=== PATIENT | female | born 1980 | race Caucasian/White ===

== ENCOUNTER 2016-05-06 21:58 | Emergency (ER) | payer OTHER ==
[~2016-05-06] VITALS: Ht 160 cm; Wt 172.5 kg
[~2016-05-06 21:58] MED LIST: CHOLCAP5 PO; FURO-85 PO; INSU1SOL SC; INSUINJ17 SC; LSN25 PO; MULT1CAP3 PO; NAPR-1169 PO; NORE5TAB5 PO; OMEP40CA PO; RANI300T2 PO
[2016-05-06 22:01] VITALS: TEMP 36.8; Ht 160 cm; Wt 172.5 kg
[2016-05-06] MEDS ORDERED: INSUINJ2 SC ×2 (22:25)
--- NOTE | 2016-05-06 22:30 | DIAGNOSTIC IMAGING REPORT ---
CHEST ONE VIEW PORTABLE CLINICAL HISTORY: Atypical chest pain COMPARISON STUDY: 09/30/2015 FINDINGS: The cardiac and mediastinal contours are normal. There is no evidence of focal pulmonary consolidation. There is no evidence of failure. No pleural effusions are visualized.[ The study is limited from a technical standpoint due to the patient's large body habitus. IMPRESSION: No active disease in the chest. Electronically signed by: Robert Brown M.D. 05/06/2016 10:28 PM Dictated Date/Time: 05/06/2016 10:28 PM
[2016-05-06 22:33] LABS: BASO % 0.1 %; BASO ABS # 0.01 K/uL (0-0.2); COMPLETE YES; EOS % 1.2 %; HEMATOCRIT 37.8 % (37-47); IG% 0.2 %; LYMPH % 23.2 %; LYMPH ABS # 2.35 K/uL (1.2-3.4); MEAN CELL VOLUME 88.3 fL (80-100); MEAN CORPUSCULAR HEMOGLOBIN 29.9 pg (25-34); MEAN CORPUSCULAR HGB CONC 33.9 g/dl (32-36); MEAN PLATELET VOLUME 11.7 fL (7.4-10.4); NEUT % 69.3 %; PLATELET COUNT 169 K/uL (130-400); RED BLOOD COUNT 4.28 M/uL (4.2-5.4); WHITE BLOOD COUNT 10.11 K/uL (4.8-10.8)
[2016-05-06 22:43] LABS: INR 0.9 (0.9-1.1); PROTHROMBIN TIME (PATIENT) 10.1 SECONDS (9.0-12.0)
[2016-05-06 23:00] LABS: CALCIUM 8.4 mg/dl (8.5-10.1); CREATININE 1.2 mg/dl (0.60-1.20); MAGNESIUM 1.9 mg/dl (1.8-2.4); POTASSIUM 3.6 mmol/L (3.5-5.1)
[2016-05-06 23:03] LABS: ALB/GLOB RATIO 0.9 (0.9-2)
[2016-05-06] MEDS ORDERED: KETOROLAC TROMETHAMINE 30 MG/ML VIAL IV STA (23:09)
[2016-05-06] MEDS ORDERED: SODIUM CHLORIDE 0.9% 1000ML 1,000 ML IV STA (23:10)
[2016-05-06 23:11] LABS: BETA-HYDROXYBUTYRATE 1.49 mg/dL (0.2-2.81); CKMB/CK RATIO 0.5 (0-3.0); THYROID STIMULATING HORMONE 2.1 uIu/ml (0.300-4.500)
[2016-05-06 23:32] VITALS: O2SAT 94
[2016-05-07 00:14] LABS: URINE APPEARANCE CLEAR (CLEAR); URINE BILIRUBIN NEG (NEG); URINE COLOR YELLOW; URINE NITRITE NEG (NEG); URINE PH 5.5 (4.5-7.5); URINE SPECIFIC GRAVITY 1.041 (1.000-1.030); UROBILINOGEN NEG (NEG); ZZUR CULT IF INDIC CLEAN CATCH NO
[2016-05-07 00:17] LABS: MANUAL MICROSCOPIC REQUIRED? NO; REVIEW REQ? NO
[2016-05-07] MEDS ORDERED: NAPR-1169 PO (01:16)
--- NOTE | 2016-05-07 01:18 | EMERGENCY ROOM VISIT NOTE ---
History First contact with patient: 22:06 Chief Complaint: CARDIAC ASSESSMENT Stated Complaint: HEAVY CHEST, SOB, HURTS TO TAKE DEEP BREATH Nursing Triage Summary: patient reports sharp pain in back began yesterday,SOB began today and chest heaviness for less than an hour today History of Present Illness The patient is a 36 year old female who presents to the Emergency Department by private vehicle for evaluation of her chest heaviness and shortness of breath. Her main complaint is her ongoing low back pain symptoms. The patient reports that she is had the symptoms for approximately 1 hour prior to arrival. She's had similar symptoms in the recent past. The patient reports that she is currently managed for diabetes and her blood sugars have been somewhat out of control recently. She reportedly is scheduled for surgery at [facility] in [place] over the next few weeks. She follows with her primary providers as well as her endocrinologists at this facility. The patient rates her current discomfort as an 8/10. She denies any loss of control bowel/bladder saddle anesthesia. She denies any dizziness, light headedness, nausea, vomiting, or abdominal pain. She reports no hematuria or dysuria. Review of Systems A complete 10-point Review of Systems was discussed with the patient, with pertinent positives and negatives listed in the History of Present Illness. All remaining Review of Systems questions can be considered negative unless otherwise specified. Past Medical/Surgical History Medical Problems: (1) Diab Sury Wo Compl, Type Ii Or Unspec Type, Not Uncntrld (2) Tubal Ligation Status Family History Cancer Diabetes mellitus FHx: seizures Heart disease Hypertension Social History Smoking Status: Never Smoker Alcohol Use: none Drug Use: none Marital Status: single Housing Status: lives with family Occupation Status: employed Current/Historical Medications Scheduled Cholecalciferol (Vitamin D3), 5,000 INTER.UNIT PO DAILY Insulin Regular (Human) (Humulin R U-500 (Concentr), 115 UNITS SC QAM Insulin Regular (Human) (Humulin R U-500 (Concentr), 125 UNITS SC QPM Lisinopril (Lisinopril), 2.5 MG PO QAM Loratadine (Claritin), 10 MG PO QAM Multiple Vitamins W/ Minerals (Womens Multi), 1 CAP PO DAILY Norethindrone (Aygestin), 10 MG PO DAILY Omeprazole (Prilosec), 40 MG PO QAM Ranitidine Hcl (Zantac), 300 MG PO HS Sertraline (Zoloft), 50 MG PO QAM Scheduled PRN Furosemide (Lasix), 40 MG PO DAILY PRN for Edema Naproxen (Naprosyn), 500 MG PO BID PRN for Pain Allergies Coded Allergies: Metformin (Verified Allergy, Unknown, "SEVERE DIARRHEA", 05/06/16) Prednisone (Verified Adverse Reaction, Unknown, increased blood sugars, 05/06/16) Physical Exam Vital Signs Date Time Temp Pulse Resp B/P Pulse Ox O2 Delivery O2 Flow Rate FiO2 05/07/16 01:29 88 20 134/77 96 05/06/16 23:32 94 Room Air 05/06/16 22:22 92 20 148/83 94 Room Air 05/06/16 22:15 95 05/06/16 22:01 36.8 99 20 158/82 95 Room Air Pain Rating (0-10): 4 Physical Exam VITAL SIGNS - Vital signs and nursing notes were reviewed. GENERAL - 36-year-old female appearing her stated age who is in no acute distress. Communicates well with provider and answers questions appropriately. NECK - Neck with FROM. Supple to palpation. LUNGS - Chest wall symmetric without accessory muscle use, intercostals retractions, or central cyanosis. Normal vesicular breath sounds CTA B/L. No wheezes, rales, or rhonchi appreciated. CARDIAC - RRR with S1/S2. No murmur, rubs, or gallops appreciated. No reproducible tenderness to palpation appreciated over the anterior chest wall. ABDOMEN - Abdominal contour obese and without pulsations or visible masses. BS normoactive all four quadrants. No tenderness, palpable masses, hepatosplenomegaly, or ascites noted. EXTREMITIES - No clubbing or peripheral cyanosis. Mild pretibial edema present. +3/5 radial and dorsalis pedis pulses palpated throughout. +5/5 strength noted in UE/LE bilaterally. PSYCH - A&Ox3 and cooperates fully with examiner. Pt is very pleasant and interacts well with examiner. Medical Decision & Procedures ER Provider Diagnostic Interpretation: Radiological imaging and reports were reviewed by myself. Radiologist's Interpretation as follows: CHEST ONE VIEW PORTABLE CLINICAL HISTORY: Atypical chest pain COMPARISON STUDY: 09/30/2015 FINDINGS: The cardiac and mediastinal contours are normal. There is no evidence of focal pulmonary consolidation. There is no evidence of failure. No pleural effusions are visualized.[ The study is limited from a technical standpoint due to the patient's large body habitus. IMPRESSION: No active disease in the chest. Laboratory Results 05/06/16 22:20 Red Blood Count 4.28, Mean Corpuscular Volume 88.3, Mean Corpuscular Hemoglobin 29.9, Mean Corpuscular Hemoglobin Concent 33.9, Mean Platelet Volume 11.7, Neutrophils (%) (Auto) 69.3, Lymphocytes (%) (Auto) 23.2, Monocytes (%) (Auto) 6.0, Eosinophils (%) (Auto) 1.2, Basophils (%) (Auto) 0.1, Neutrophils # (Auto) 7.00, Lymphocytes # (Auto) 2.35, Monocytes # (Auto) 0.61, Eosinophils # (Auto) 0.12, Basophils # (Auto) 0.01 05/06/16 22:20 Test 05/06/16 22:20 05/06/16 22:26 05/06/16 23:45 05/07/16 00:53 White Blood Count 10.11 K/uL (4.8-10.8) Red Blood Count 4.28 M/uL (4.2-5.4) Hemoglobin 12.8 g/dL (12.0-16.0) Hematocrit 37.8 % (37-47) Mean Corpuscular Volume 88.3 fL (80-100) Mean Corpuscular Hemoglobin 29.9 pg (25-34) Mean Corpuscular Hemoglobin Concent 33.9 g/dl (32-36) Platelet Count 169 K/uL (130-400) Mean Platelet Volume 11.7 fL (7.4-10.4) Neutrophils (%) (Auto) 69.3 % Lymphocytes (%) (Auto) 23.2 % Monocytes (%) (Auto) 6.0 % Eosinophils (%) (Auto) 1.2 % Basophils (%) (Auto) 0.1 % Neutrophils # (Auto) 7.00 K/uL (1.4-6.5) Lymphocytes # (Auto) 2.35 K/uL (1.2-3.4) Monocytes # (Auto) 0.61 K/uL (0.11-0.59) Eosinophils # (Auto) 0.12 K/uL (0-0.5) Basophils # (Auto) 0.01 K/uL (0-0.2) RDW Standard Deviation 43.9 fL (36.4-46.3) RDW Coefficient of Variation 13.6 % (11.5-14.5) Immature Granulocyte % (Auto) 0.2 % Immature Granulocyte # (Auto) 0.02 K/uL (0.00-0.02) Prothrombin Time 10.1 SECONDS (9.0-12.0) Prothromb Time International Ratio 0.9 (0.9-1.1) Activated Partial Thromboplast Time 25.2 SECONDS (21.0-31.0) Partial Thromboplastin Ratio 1.0 Anion Gap 12.0 mmol/L (3-11) Est Creatinine Clear Calc Drug Dose 100.8 ml/min Estimated GFR () 66.4 Estimated GFR (Non- 57.3 BUN/Creatinine Ratio 15.0 (10-20) Calcium Level 8.4 mg/dl (8.5-10.1) Magnesium Level 1.9 mg/dl (1.8-2.4) Total Bilirubin 0.3 mg/dl (0.2-1) Aspartate Amino Transf (AST/SGOT) 18 U/L (15-37) Alanine Aminotransferase (ALT/SGPT) 48 U/L (12-78) Alkaline Phosphatase 85 U/L (45-117) Total Creatine Kinase 110 U/L (26-192) Creatine Kinase MB 0.6 ng/ml (0.5-3.6) Creatine Kinase MB Ratio 0.5 (0-3.0) Total Protein 7.2 gm/dl (6.4-8.2) Albumin 3.4 gm/dl (3.4-5.0) Globulin 3.8 gm/dl (2.5-4.0) Albumin/Globulin Ratio 0.9 (0.9-2) Lipase 99 U/L (73-393) Beta-Hydroxybutyric Acid 1.49 mg/dL (0.2-2.81) Thyroid Stimulating Hormone (TSH) 2.100 uIu/ml (0.300-4.500) Bedside D-Dimer 418 ng/mlFEU (0-450) Bedside Troponin I 0.000 ng/ml (0-0.045) Urine Color YELLOW Urine Appearance CLEAR (CLEAR) Urine pH 5.5 (4.5-7.5) Urine Specific [place] 1.041 (1.000-1.030) Urine Protein NEG (NEG) Urine Glucose (UA) 3+ (NEG) Urine Ketones TRACE (NEG) Urine Occult Blood NEG (NEG) Urine Nitrite NEG (NEG) Urine Bilirubin NEG (NEG) Urine Urobilinogen NEG (NEG) Urine Leukocyte Esterase NEG (NEG) Urine Test NEG (NEG) Bedside Glucose 333 mg/dl (70-90) Medications Administered Medications (Trade) Dose Ordered Sig/Asim Route Start Time Stop Time Status Last Admin Dose Admin Ketorolac Tromethamine 30 mg 30 mg NOW STAT IV 05/06/16 23:09 05/06/16 23:10 DC 05/06/16 23:24 30 MG Sodium Chloride (Nss 1000ml) 1,000 ml @ 999 mls/hr Q1H1M STAT IV 05/06/16 23:10 05/07/16 00:10 DC 05/06/16 23:24 999 MLS/HR ECG Indication: chest pain Rate (beats per minute): 98 Rhythm: normal sinus Findings: no acute ischemic change, no ectopy Comparison ECG Date: no prior available ED Course Patient was seen and evaluated by myself. Labs were drawn, saline lock in place. EKG and chest x-ray were obtained. Previous emergency department visit notes were reviewed. EKG is unremarkable. Chest x-ray demonstrates no acute findings. Laboratory results demonstrate no acute leukocytosis, worrisome anemia, or bandemia. The patient has no significant electrolyte abnormalities. Cardiac enzymes are negative. Troponin is negative. D-dimer was not elevated. Patient was treated with 30 mg Toradol intravenously while waiting on urine sample. She was hydrated with 1000 mL normal saline bolus given her a limited blood glucose level. Patient was eventually able to provide a urine sample. She does have mild ketones and glucose in her urine. The patient was reevaluated and reports that her blood sugars have been running in the 300s after being consistently in the 500s. She reports that this is actually much improved. She feels much better at this time. She was placed in a short course of naproxen. She was educated on following up with her primary care provider from today's visit. Patient discharged home afebrile and in good condition. Medical Decision Given the patient's presentation and stated complaints, I did elect to perform the above-mentioned workup. The patient presents today complaining of pleuritic pain in her chest and back. She is not hypoxic. She is not tachypneic. She is not tachycardic. Her EKG demonstrates no acute findings. Cardiac enzymes do not suggest acute injury otherwise. D-dimer is negative making PE much less likely. She responded well to IV Toradol. The patient is seen some mild pleuritic pain. In addition, she was found have elevated blood glucose levels. Apparently, this appears to be the patient's baseline, however. She is on insulin. She reports that she needs to follow-up with her pharmacist that she deals with with her blood glucose levels anyway. She was educated on following with her primary care provider as well as worrisome symptoms for return visit to the emergency department. Patient discharged home afebrile and in good condition. In the evaluation and treatment of this patient, the following differential diagnoses were considered: [place], ASC, Dysrhythmia, Angina, Mediastinitis, GERD, Esophagitis, PE, Pneumonia, Bronchitis, Costochondritis, Rib Fracture, Zoster. Impression Primary Impression: Pleuritic chest pain Departure Information Dispostion Home / Self-Care Condition GOOD Referrals Judit Dixon M.D. (PCP) Patient Instructions A Signature Page, [facility] Additional Instructions You have been treated in the Emergency Department for your Pleuritic Chest Pain. Laboratory results and Imaging Studies have ruled out any cardiac or pulmonary cause of your chest pain. You have been prescribed Naprosyn (naproxen). This is an anti-inflammatory medication used to help decrease your symptoms and improve your pain. Please take this medication as prescribed. It is best to take this medication with food. Please to not take this antibiotic with other NSAIDS including: Ibuprofen , Advil, Motrin, Aspirin, Aleve, Celebrex, etc. For pain control, you can use the following [id number] medicines (if >12 yo): - Regular strength (325mg/tab) Tylenol (acetaminophen) 2 tabs every 4-6 hours as needed. Do not exceed 12 tablets in a 24 hour period. Avoid taking more than 4 grams (4000 mg) of Tylenol per day. This includes any other sources of acetaminophen you may take on a regular basis. You should schedule a follow-up appointment with your Primary Care Provider in 2 -3 days for further evaluation from today's Emergency Department visit. Return to the Emergency Department if your current symptoms worsen despite treatment course outlined above, or if you develop any of the following symptoms : worsening chest pain, associated jaw/arm pain, nausea, dizziness, shortness of breath, bloody cough, or fainting.
[2016-05-07 01:29] VITALS: BP 134/77; PULSE 88; O2SAT 96
[2016-09-01] MEDS ORDERED: PEDICHW50 PO (10:28)
[2016-09-01] MEDS ORDERED: INSDGIPEN SC (10:28)
[2016-09-01] MEDS ORDERED: CHOL1TAB42 PO (10:49)
[2016-09-01] MEDS ORDERED: CYNI1000 SQ (10:49)
[2016-09-01] MEDS ORDERED: CALC250T8 PO (10:49)
[2016-09-01] MEDS ORDERED: NORE5TAB5 PO (10:55)
[2016-09-01] MEDS ORDERED: LORA10TA5 PO (16:53)
[2016-09-01] MEDS ORDERED: SERT50TA PO (19:59)
[2016-09-15] MEDS ORDERED: ACET-1256 PO (12:19)
[2016-10-01] MEDS ORDERED: ACET-749 PO (11:56)
== END 2016-05-07 01:29 | disposition home or self-care (01) ==
LOC: C.EDB 22:00 → C.EDA 05-07 01:29
DX: R07.1 Chest pain on breathing (principal); E11.9 Type 2 diabetes mellitus without complications; Z83.3 Family history of diabetes mellitus; Z82.49 Family history of ischemic heart disease and other diseases of the circulatory system; Z79.4 Long term (current) use of insulin

== ENCOUNTER 2016-06-28 10:08 | Emergency (ER) | payer OTHER ==
[~2016-06-28] VITALS: Ht 160 cm; Wt 158.0 kg
[~2016-06-28 10:08] MED LIST changes: -INSU1SOL SC; -INSUINJ17 SC; +INSUINJ2 SC
[2016-06-28 10:12] VITALS: TEMP 36.6; Ht 160 cm; Wt 158.0 kg
[2016-06-28] MEDS ORDERED: ACET-1256 PO (10:29)
[2016-06-28] MEDS ORDERED: NF406 PO (11:33)
--- NOTE | 2016-06-28 11:33 | EMERGENCY ROOM VISIT NOTE ---
History Report prepared by Tati: Cade Lujan Under the Supervision of: Dr. Ramone Foy M.D. First contact with patient: 10:16 Chief Complaint: FEVER Stated Complaint: LOW GRADE FEVER, SORETHROAT History of Present Illness The patient is a 36 year old female who presents to the Emergency Room with complaints of a persistent low grade fever starting yesterday. She had a temperature of 100.2 degrees Fahrenheit. She also reports a runny nose and a sore throat starting yesterday. 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 She was referred to the Emergency Room by her PCP. She denies any recent ill contacts, LOC, body aches, chills, cough, chest pain, shortness of breath, nausea, vomiting, back pain, diarrhea, or any other complaints. She received her flu shot today. Source of History: patient Onset: yesterday Position: other (global) Symptom Intensity: 100.2 degrees Fahrenheit Quality: other (fever) Timing: other (persistent) Associated Symptoms: + sorethroat, No LOC, No SOB, No back pain, No chest pain, No chills, No cough, No diarrhea, No nausea, No vomiting Review of Systems See HPI for pertinent positives & negatives. A total of 10 systems reviewed and were otherwise negative. Past Medical & Surgical Medical Problems: (1) Diab Sury Wo Compl, Type Ii Or Unspec Type, Not Uncntrld (2) Tubal Ligation Status Family History Cancer Diabetes mellitus FHx: seizures Heart disease Hypertension Social History Smoking Status: Never Smoker Alcohol Use: none Drug Use: none Marital Status: single Housing Status: lives with family Occupation Status: employed Current/Historical Medications Scheduled Acetaminophen (Tylenol), 1,000 MG PO Q4 Insulin Glargine (Lantus Solostar), 58 UNITS SC AMPM Loratadine (Claritin), 10 MG PO QAM Omeprazole (Prilosec), 20 MG PO QAM Oseltamivir Phosphate (Tamiflu), 1 CAP PO BID Pediatric Multiple Vitamin W/ (Flintstones Chewable), 1 TAB PO BID Sertraline (Zoloft), 50 MG PO QAM Allergies Coded Allergies: Metformin (Verified Allergy, Unknown, "SEVERE DIARRHEA", 06/28/16) Prednisone (Verified Adverse Reaction, Unknown, increased blood sugars, ) Physical Exam Vital Signs Date Time Temp Pulse Resp B/P Pulse Ox O2 Delivery O2 Flow Rate FiO2 06/28/16 11:44 70 18 145/81 99 06/28/16 10:12 36.6 70 18 147/81 97 Room Air Physical Exam GENERAL: Patient is well appearing and in no acute distress. HEENT: No acute trauma, normocephalic atraumatic, mucous membranes moist, no nasal congestion, no scleral icterus. Mild erythema to the posterior oropharynx. NECK: No stridor, no adenopathy, no meningismus, trachea is midline. LUNGS: No dyspnea. Clear to auscultation and equal bilaterally. No wheeze, no rhonchi. HEART: Regular rate and rhythm. No murmurs, rubs, gallops appreciated. ABDOMEN: Soft, nontender, bowel sounds positive, no masses appreciated, no peritonitis. Well healing abdominal port scars. BACK: No midline tenderness, no CVA tenderness EXTREMITIES: Normal motion all extremities, no cyanosis, no edema. NEUROLOGIC: Alert and oriented, no acute motor or sensory deficits, no focal weakness, cranial nerves grossly intact. SKIN: No rash, no jaundice, no diaphoresis. Medical Decision & Procedures ED Course 1016: The patient was evaluated in room B04B. A complete history and physical exam was performed. 1131: Reevaluated the patient. Discussed results and discharge instructions: She verbalized understanding and agreement. I also discussed the pros and cons of Tamiflu. The patient is ready for discharge. Medical Decision Differential: Viral, Tonsillitis, Strep, [place], Peritonsillar Abscess, Retropharyngeal Abscess, Otitis, Pneumonia, Influenza, amongst other pathologies entertained. 36 yr old female arrives with complaint of low grade fever, sore throat, mild body aches and runny nose with periodic cough. Strep negative. Exam benign. History consistent with early flu (did get vaccinated though known 47% efficacy) . With recent surgeries seems reasonable trying to decrease length of symptoms as best possible. Discussed risks of tamiflu. Follow up with PCP. Avoid coworkers if febrile/symptomatic. Discussed avoiding NSAIDs/ASA. Impression Primary Impression: Flu-like symptoms Scribe Attestation The scribe's documentation has been prepared under my direction and personally reviewed by me in its entirety. I confirm that the note above accurately reflects all work, treatment, procedures, and medical decision making performed by me. Departure Information Dispostion Home / Self-Care Prescriptions Oseltamivir Phosphate (Tamiflu) 75 Mg Cap 1 CAP PO BID for 5 Days, #10 CAP Prov: Ramone Foy M.D. 06/28/16 Referrals Judit Dixon M.D. (PCP) Forms HOME CARE DOCUMENTATION FORM, IMPORTANT VISIT INFORMATION Patient Instructions ED Flu, My [facility]
[2016-06-28 11:44] VITALS: BP 145/81; PULSE 70; O2SAT 99
[2016-09-01] MEDS ORDERED: INSDGIPEN SC (10:28)
[2016-09-01] MEDS ORDERED: PEDICHW50 PO (10:28)
[2016-09-01] MEDS ORDERED: CYNI1000 SQ (10:49)
[2016-09-01] MEDS ORDERED: CHOL1TAB42 PO (10:49)
[2016-09-01] MEDS ORDERED: CALC250T8 PO (10:49)
[2016-09-01] MEDS ORDERED: NORE5TAB5 PO (10:55)
[2016-09-01] MEDS ORDERED: LORA10TA5 PO (16:53)
[2016-09-01] MEDS ORDERED: SERT50TA PO (19:59)
[2016-09-15] MEDS ORDERED: ACET-1256 PO (12:19)
[2016-10-01] MEDS ORDERED: ACET-749 PO (11:56)
== END 2016-06-28 11:45 | disposition home or self-care (01) ==
LOC: C.EDB 10:11
DX: R50.9 Fever, unspecified (principal); J02.9 Acute pharyngitis, unspecified; R05 Cough; Z98.84 Bariatric surgery status; E11.9 Type 2 diabetes mellitus without complications; Z98.51 Tubal ligation status; Z83.3 Family history of diabetes mellitus; Z82.49 Family history of ischemic heart disease and other diseases of the circulatory system; Z82.0 Family history of epilepsy and other diseases of the nervous system; Z79.4 Long term (current) use of insulin; Z79.899 Other long term (current) drug therapy

== ENCOUNTER 2016-07-12 13:47 | Emergency (ER) | payer OTHER ==
[~2016-07-12] VITALS: Ht 160 cm; Wt 154.0 kg
[~2016-07-12 13:47] MED LIST changes: +ACET-1256 PO; -CHOLCAP5 PO; -FURO-85 PO; -INSUINJ2 SC; -LSN25 PO; -MULT1CAP3 PO; -NAPR-1169 PO; -NORE5TAB5 PO; -RANI300T2 PO
[2016-07-12 13:51] VITALS: TEMP 36.4; Ht 160 cm; Wt 154.0 kg
[2016-07-12] MEDS ORDERED: SODIUM CHLORIDE 0.9% 1000ML 1,000 ML IV STA (14:19)
[2016-07-12] MEDS ORDERED: DEXTROSE 25% 250 MG/ML 10 ML SYR IV STA (14:29)
[2016-07-12 14:30] LABS: BASO % 0.2 %; BASO ABS # 0.02 K/uL (0-0.2); COMPLETE YES; EOS % 0.9 %; HEMATOCRIT 39.8 % (37-47); IG% 0.2 %; LYMPH ABS # 2.13 K/uL (1.2-3.4); MEAN CELL VOLUME 86.3 fL (80-100); MEAN CORPUSCULAR HEMOGLOBIN 29.3 pg (25-34); MEAN CORPUSCULAR HGB CONC 33.9 g/dl (32-36); MEAN PLATELET VOLUME 11.5 fL (7.4-10.4); MONO % 6.6 %; NEUT % 67.1 %; PLATELET COUNT 189 K/uL (130-400); RED BLOOD COUNT 4.61 M/uL (4.2-5.4); WHITE BLOOD COUNT 8.53 K/uL (4.8-10.8)
[2016-07-12 14:38] LABS: BUN/CREATININE RATIO 22.1 (10-20); CALCIUM 9.2 mg/dl (8.5-10.1); CREATININE 0.69 mg/dl (0.60-1.20); POTASSIUM 3.3 mmol/L (3.5-5.1)
[2016-07-12] MEDS ORDERED: PRLSR20 PO (14:45)
[2016-07-12 15:19] LABS: URINE APPEARANCE CLEAR (CLEAR); URINE COLOR DK YELLOW; URINE EPITHELIAL CELL AUTO >30 /lpf (0-5); URINE NITRITE NEG (NEG); URINE SPECIFIC GRAVITY 1.039 (1.000-1.030); UROBILINOGEN NEG (NEG); ZZUR CULT IF INDIC CLEAN CATCH NO
[2016-07-12 15:21] LABS: MANUAL MICROSCOPIC REQUIRED? NO; REVIEW REQ? YES
[2016-07-12 15:22] LABS: URINE BILIRUBIN NEG (NEG)
[2016-07-12 15:49] LABS: URINE MUCUS PRESENT (NONE PRSENT)
[2016-07-12 16:18] VITALS: BP 128/79; PULSE 60; O2SAT 96
--- NOTE | 2016-07-12 21:17 | EMERGENCY ROOM VISIT NOTE ---
History Report prepared by Tati: Jess Chavez Under the Supervision of: Dr. Paul Hill M.D. First contact with patient: 14:19 Chief Complaint: HYPOGLYCEMIA Stated Complaint: HYPOGLYCEMIA-HAD GASTRO BYPASS SURGERY History of Present Illness The patient is a 36 year old female who presents to the Emergency Room with complaints of worsening hypoglycemia today. The patient states that she had gastric bypass surgery on May 28, [address] Echavarria at [facility]. The patient has a history of diabetes and has been on 50 units of Lantus twice a day since then. She states that her sugars were running high prior to the surgery but have been progressively going down since she was put on Lantus. Last night, the patient was due for her second dose of Lantus but because she is in the middle of moving, only had 7 units with her. Her blood sugar was 115 at that time and she took the 7 units. When she woke up this morning, her blood sugar was 90. She called the pharmacist to consult about her Lantus doses and he suggested that she only take 35 units instead of the full 50. This morning she ate eggs, cheese, and sausage. She also ate a cheese stick at work. She states that her blood sugar went up to 147 after eating but has slowly been decreasing. Her blood sugar went down to 80 so she called the pharmacist again and was referred to the ER. Upon arrival her sugar was 67. Currently, she complains of a minimal headache, nausea, and shakiness. She reports that she has dietary restrictions she needs to follow due to her surgery. Pt denies LOC, fevers, chills, diaphoresis, visual changes, neck pain, chest pain, breathing difficulties, vomiting, abdominal pain, back pain, melena, hematochezia, urinary symptoms, numbness, weakness, lymphadenopathy, rash, or other complaints. Source of History: patient Onset: this morning Position: other (global) Symptom Intensity: BSG 67 Timing: worsening Associated Symptoms: + headache, + nausea Note: Other symptoms shakiness Review of Systems See HPI for pertinent positives and negatives. A total of ten systems were reviewed and were otherwise negative. Past Medical & Surgical Medical Problems: (1) Diab Sury Wo Compl, Type Ii Or Unspec Type, Not Uncntrld (2) Tubal Ligation Status Family History Cancer Diabetes mellitus FHx: seizures Heart disease Hypertension Social History Smoking Status: Never Smoker Alcohol Use: none Drug Use: none Marital Status: single Housing Status: lives with family Occupation Status: employed Current/Historical Medications Scheduled Insulin Glargine (Lantus Solostar), 35 UNITS SC AMPM Loratadine (Claritin), 10 MG PO QAM Omeprazole (Prilosec), 20 MG PO DAILY Pediatric Multiple Vitamin W/ (Flintstones Chewable), 1 TAB PO BID Sertraline (Zoloft), 50 MG PO QAM Allergies Coded Allergies: Metformin (Verified Allergy, Unknown, "SEVERE DIARRHEA", 06/28/16) Prednisone (Verified Adverse Reaction, Unknown, increased blood sugars, ) Physical Exam Vital Signs Date Time Temp Pulse Resp B/P Pulse Ox O2 Delivery O2 Flow Rate FiO2 07/12/16 16:18 60 18 128/79 96 Room Air 07/12/16 14:55 60 20 132/68 94 Room Air 07/12/16 14:33 64 07/12/16 13:51 36.4 68 18 150/86 96 Room Air Physical Exam GENERAL: Awake, alert, well-appearing, in no distress HENT: Normocephalic, atraumatic. Oropharynx unremarkable. EYES: Normal conjunctiva. Sclera non-icteric. NECK: Supple. No nuchal rigidity. FROM. No JVD. RESPIRATORY: Clear to auscultation. CARDIAC: Regular rate, normal rhythm. Extremities warm and well perfused. Pulses equal. ABDOMEN: Soft, non-distended. No tenderness to palpation. No rebound or guarding. No masses. RECTAL: Deferred. MUSCULOSKELETAL: Chest examination reveals no tenderness. The back is symmetrical on inspection without obvious abnormality. There is no CVA tenderness to palpation. No joint edema. LOWER EXTREMITIES: Calves are equal size bilaterally and non-tender. No edema. No discoloration. NEURO: Normal sensorium. No sensory or motor deficits noted. SKIN: No rash or jaundice noted. Medical Decision & Procedures Laboratory Results 07/12/16 14:05 Red Blood Count 4.61, Mean Corpuscular Volume 86.3, Mean Corpuscular Hemoglobin 29.3, Mean Corpuscular Hemoglobin Concent 33.9, Mean Platelet Volume 11.5, Neutrophils (%) (Auto) 67.1, Lymphocytes (%) (Auto) 25.0, Monocytes (%) (Auto) 6.6, Eosinophils (%) (Auto) 0.9, Basophils (%) (Auto) 0.2, Neutrophils # (Auto) 5.72, Lymphocytes # (Auto) 2.13, Monocytes # (Auto) 0.56, Eosinophils # (Auto) 0.08, Basophils # (Auto) 0.02 07/12/16 14:05 Test 07/12/16 14:05 07/12/16 14:50 07/12/16 15:50 White Blood Count 8.53 K/uL (4.8-10.8) Red Blood Count 4.61 M/uL (4.2-5.4) Hemoglobin 13.5 g/dL (12.0-16.0) Hematocrit 39.8 % (37-47) Mean Corpuscular Volume 86.3 fL (80-100) Mean Corpuscular Hemoglobin 29.3 pg (25-34) Mean Corpuscular Hemoglobin Concent 33.9 g/dl (32-36) Platelet Count 189 K/uL (130-400) Mean Platelet Volume 11.5 fL (7.4-10.4) Neutrophils (%) (Auto) 67.1 % Lymphocytes (%) (Auto) 25.0 % Monocytes (%) (Auto) 6.6 % Eosinophils (%) (Auto) 0.9 % Basophils (%) (Auto) 0.2 % Neutrophils # (Auto) 5.72 K/uL (1.4-6.5) Lymphocytes # (Auto) 2.13 K/uL (1.2-3.4) Monocytes # (Auto) 0.56 K/uL (0.11-0.59) Eosinophils # (Auto) 0.08 K/uL (0-0.5) Basophils # (Auto) 0.02 K/uL (0-0.2) RDW Standard Deviation 44.2 fL (36.4-46.3) RDW Coefficient of Variation 14.0 % (11.5-14.5) Immature Granulocyte % (Auto) 0.2 % Immature Granulocyte # (Auto) 0.02 K/uL (0.00-0.02) Anion Gap 8.0 mmol/L (3-11) Est Creatinine Clear Calc Drug Dose 162.4 ml/min Estimated GFR () 128.0 Estimated GFR (Non- 110.4 BUN/Creatinine Ratio 22.1 (10-20) Calcium Level 9.2 mg/dl (8.5-10.1) Total Bilirubin 0.6 mg/dl (0.2-1) Direct Bilirubin 0.2 mg/dl (0-0.2) Aspartate Amino Transf (AST/SGOT) 21 U/L (15-37) Alanine Aminotransferase (ALT/SGPT) 44 U/L (12-78) Alkaline Phosphatase 111 U/L (45-117) Total Protein 7.9 gm/dl (6.4-8.2) Albumin 4.0 gm/dl (3.4-5.0) Lipase 64 U/L (73-393) Urine Color DK YELLOW Urine Appearance CLEAR (CLEAR) Urine pH 6.0 (4.5-7.5) Urine Specific [place] 1.039 (1.000-1.030) Urine Protein NEG (NEG) Urine Glucose (UA) NEG (NEG) Urine Ketones 3+ (NEG) Urine Occult Blood NEG (NEG) Urine Nitrite NEG (NEG) Urine Bilirubin NEG (NEG) Urine Urobilinogen NEG (NEG) Urine Leukocyte Esterase TRACE (NEG) Urine WBC (Auto) 1-5 /hpf (0-5) Urine RBC (Auto) 0-4 /hpf (0-4) Urine Hyaline Casts (Auto) 1-5 /lpf (0-5) Urine Epithelial Cells (Auto) >30 /lpf (0-5) Urine Bacteria (Auto) NEG (NEG) Urine Crystals CALCIUM OXALATE (NONE Urine Mucus PRESENT (NONE PRSENT) Bedside Glucose 107 mg/dl (70-90) Laboratory results reviewed by me Medications Administered Medications (Trade) Dose Ordered Sig/Asim Route Start Time Stop Time Status Last Admin Dose Admin Sodium Chloride (Nss 1000ml) 1,000 ml @ 125 mls/hr Q8H STAT IV 07/12/16 14:19 07/12/16 16:44 DC 07/12/16 14:51 125 MLS/HR Dextrose (Dextrose 25% 10ML Syringe) 10 ml NOW STAT IV 07/12/16 14:29 07/12/16 14:30 DC 07/12/16 14:54 10 ML ED Course 1419: Ordered NSS 1000 ml @ 125 mls/hr IV. 1425: The patient was evaluated in room A12. A complete history and physical exam was performed. 1429: Ordered Dextrose 10 ml IV. 1558: I reassessed the patient. She was feeling better. 1606: I discussed the case with Ryan Norris, Diabetic Pharmacist at the [facility]. His recommendation was to hold the Lantus tonight and tomorrow morning. He will call her to adjust her dose based upon how her sugars trend. 1618: I reevaluated the patient. She was resting comfortably. Discussed results and discharge instructions: She verbalized understanding and agreement. The patient is ready for discharge. Medical Decision Triage Nursing notes reviewed. The patient's presentation and history were concerning for hypoglycemia. Etiologies such as metabolic, infection, hypo/hyperglycemia, electrolyte abnormalities, cardiac sources, intracerebral event, toxicologic, neurologic, as well as others were entertained. Patient was evaluated. Clinically she was doing well. She had a mildly low sugar. She has been taking much less oral intake since her gastric bypass. Her Lantus has been weaned down. She took a smaller dose but still significant amount this morning. She was given a small dose of IV dextrose. She was given lunch. Her repeat sugar was normal. Her blood work was unremarkable otherwise. I did consult with her clinic managing her insulin. I spoke with Ryan Norris, her pharmacist who has been managing her Lantus. We discussed and it she will hold her Lantus this evening and tomorrow morning until the clinic contacts her. Patient felt comfortable with this plan. She will monitor her blood sugar closely throughout the day and continue all her post bypass care as previously outlined. If she worsens in any way she will be back to the Emergency Room for reevaluation. By the evaluation outlined above other emergent etiologies such as those listed in the differential, as well as others, were deemed relatively unlikely. The patient and family were informed about the findings as listed above. All questions were answered and they were pleased with the treatment. Return instructions were outlined and the patient was discharged in stable condition. The patient was referred to her outpatient clinic for follow-up for a recheck of the current condition. The chart was completed utilizing [employer] voice recognition software. Grammatical errors, random word insertions, pronoun errors, and incomplete sentences are an occasional consequence of this system due to software limitations, ambient noise, and hardware issues. Any formal questions or concerns about the content, text, or information contained within the body of this dictation should be directly addressed to the physician for clarification. Impression Primary Impression: Hypoglycemia Scribe Attestation The scribe's documentation has been prepared under my direction and personally reviewed by me in its entirety. I confirm that the note above accurately reflects all work, treatment, procedures, and medical decision making performed by me. Departure Information Dispostion Home / Self-Care Referrals Judit Dixon M.D. (PCP) Patient Instructions My [facility] Additional Instructions Hold any additional Lantus insulin today. Continue her normal diet. Monitor your blood sugar at least 2-3 times today and then tomorrow morning. You should receive a phone call from [employer] tomorrow morning between 8 and 10 AM with instructions on how to continue your Lantus dosing. Continue other medications and bypass care. Return to the ER for persistently low blood sugar less than 80, headache, passing out, difficulty breathing, fevers, numbness, tingling, worsening of your condition, or as needed.
[2016-09-01] MEDS ORDERED: PEDICHW50 PO (10:28)
[2016-09-01] MEDS ORDERED: INSDGIPEN SC (10:28)
[2016-09-01] MEDS ORDERED: CALC250T8 PO (10:49)
[2016-09-01] MEDS ORDERED: CHOL1TAB42 PO (10:49)
[2016-09-01] MEDS ORDERED: CYNI1000 SQ (10:49)
[2016-09-01] MEDS ORDERED: NORE5TAB5 PO (10:55)
[2016-09-01] MEDS ORDERED: LORA10TA5 PO (16:53)
[2016-09-01] MEDS ORDERED: SERT50TA PO (19:59)
[2016-09-15] MEDS ORDERED: ACET-1256 PO (12:19)
[2016-10-01] MEDS ORDERED: ACET-749 PO (11:56)
== END 2016-07-12 16:20 | disposition home or self-care (01) ==
LOC: C.EDB 13:48 → C.EDA 16:20
DX: E11.649 Type 2 diabetes mellitus with hypoglycemia without coma (principal); Z98.84 Bariatric surgery status; Z79.4 Long term (current) use of insulin; Z79.899 Other long term (current) drug therapy; Z98.51 Tubal ligation status; Z83.3 Family history of diabetes mellitus; Z82.0 Family history of epilepsy and other diseases of the nervous system; Z82.49 Family history of ischemic heart disease and other diseases of the circulatory system

== ENCOUNTER 2016-08-17 10:06 | Emergency (ER) | payer OTHER ==
[~2016-08-17] VITALS: Ht 160 cm; Wt 145.0 kg
[~2016-08-17 10:06] MED LIST changes: -ACET-1256 PO; -OMEP40CA PO; +PRLSR20 PO
[2016-08-17 10:14] VITALS: TEMP 36.7; Ht 160 cm; Wt 145.0 kg
--- NOTE | 2016-08-17 10:39 | EMERGENCY ROOM VISIT NOTE ---
History Report prepared by Tati: Naresh Escalante Under the Supervision of: Dr. Ramone Foy M.D. First contact with patient: 10:25 Chief Complaint: ED VAG BLEEDING Stated Complaint: HEAVY MENSTRUAL BLEEDING History of Present Illness The patient is a 36 year old female who presents to the Emergency Room with complaints of persistent vaginal bleeding that started 2 days ago. She says that she had an IUD put in 3 months ago, and it fell out 2 days ago. She has had heavy bleeding ever since. The patient says that the IUD came out during an episode of abdominal cramping, and the IUD came out in a large clot. The patient called Dr. Urena ([facility]), and she was prescribed a hormone. The patient took the hormone last night and this morning. She has an appointment with her OBGYN tomorrow. The patient denies any loss of consciousness, chest pain, or fevers. She does have a history of bleeding problems, and that is why she had her IUD put in. The patient takes Avastin. Source of History: patient Onset: 2 days ago Position: other (vagina) Symptom Intensity: heavy Quality: other (bleeding) Timing: other (persistent) Associated Symptoms: No LOC, No chest pain, No fevers Note: Associated symptoms: Episode of abdominal cramping when IUD came out. Review of Systems See HPI for pertinent positives & negatives. A total of 10 systems reviewed and were otherwise negative. Past Medical & Surgical Medical Problems: (1) Diab Sury Wo Compl, Type Ii Or Unspec Type, Not Uncntrld (2) Tubal Ligation Status Family History Cancer Diabetes mellitus FHx: seizures Heart disease Hypertension Social History Smoking Status: Never Smoker Alcohol Use: none Drug Use: none Marital Status: single Housing Status: lives with family Occupation Status: employed Current/Historical Medications Scheduled Calcium Citrate (Calcium Citrate), 2 TAB PO BID Cholecalciferol (Vitamin D), 5,000 UNITS PO QPM Cyanocobalamin (Cyanocobalamin), 1,000 UNITS SQ [id number] Insulin Glargine (Lantus Solostar), 48 UNITS SC QAM Loratadine (Claritin), 10 MG PO QAM Norethindrone (Aygestin), 5 MG PO BID Omeprazole (Prilosec), 20 MG PO DAILY Pediatric Multiple Vitamin W/ (Flintstones Chewable), 1 TAB PO BID Sertraline (Zoloft), 50 MG PO QAM Allergies Coded Allergies: Metformin (Verified Allergy, Unknown, "SEVERE DIARRHEA", 08/17/16) Prednisone (Verified Adverse Reaction, Unknown, increased blood sugars, ) Physical Exam Vital Signs Date Time Temp Pulse Resp B/P Pulse Ox O2 Delivery O2 Flow Rate FiO2 08/17/16 11:14 75 20 109/77 98 08/17/16 10:14 36.7 71 18 153/82 97 Room Air Physical Exam GENERAL: Patient is anxious appearing and in minimal distress. HEENT: No acute trauma, normocephalic atraumatic, mucous membranes moist, no nasal congestion, no scleral icterus. NECK: No stridor, no adenopathy, no meningismus, trachea is midline. LUNGS: No dyspnea. Clear to auscultation and equal bilaterally. No wheeze, no rhonchi. HEART: Regular rate and rhythm. No murmurs, rubs, gallops appreciated. ABDOMEN: Soft, nontender, bowel sounds positive, no masses appreciated, no peritonitis. BACK: No midline tenderness, no CVA tenderness EXTREMITIES: Normal motion all extremities, no cyanosis, no edema. PELVIC: Normal external, mild amount of blood throughout vaginal vault, mild bleeding from cervix, no clear laceration appreciated, no lacerations within vaginal vault. NEUROLOGIC: Alert and oriented, no acute motor or sensory deficits, no focal weakness, cranial nerves grossly intact. SKIN: No rash, no jaundice, no diaphoresis. Medical Decision & Procedures Laboratory Results 08/17/16 10:45 Test 08/17/16 10:45 Red Blood Count 4.26 M/uL (4.2-5.4) Mean Corpuscular Volume 88.7 fL (80-100) Mean Corpuscular Hemoglobin 29.3 pg (25-34) Mean Corpuscular Hemoglobin Concent 33.1 g/dl (32-36) RDW Standard Deviation 45.5 fL (36.4-46.3) RDW Coefficient of Variation 13.9 % (11.5-14.5) Mean Platelet Volume 11.6 fL (7.4-10.4) Laboratory results as reviewed by me. ED Course 1024: The patient was evaluated in room A9B. A complete history and physical exam was performed. 1053: I reevaluated the patient and performed a pelvic exam. She is resting comfortably. The patient verbally expressed understanding and agreement with the treatment plan. The patient will be discharged. Medical Decision Differential: Menstrual Bleeding, Dysfunctional Uterine Bleeding, Infectious, Ectopic , Bleeding Dyscrasia, amongst other pathologies entertained. 36 yr old female with chronic issues with heavy irregular vaginal bleeding who had IUD placed 4 months ago with hope of improvement in symptoms. Over the weekend heavy cramping and passed IUD. Continued bleeding even while on Aygestin. HgB OK, vitals alright and vaginal exam with mild blood in vaginal vault. She has appointment with air value tester tomorrow. No evidence of perfed uterus and she has no UTI symptoms. She does not have significant pelvic pain nor TTP over abdomen. Impression Primary Impression: Heavy vaginal bleeding due to contraceptive implant use Scribe Attestation The scribe's documentation has been prepared under my direction and personally reviewed by me in its entirety. I confirm that the note above accurately reflects all work, treatment, procedures, and medical decision making performed by me. Departure Information Dispostion Home / Self-Care Referrals Judit Dixon M.D. (PCP) Chuck Urena M.D. Patient Instructions ED Bleed Irregular Vaginal, My [facility]
[2016-08-17 10:53] LABS: HEMATOCRIT 37.8 % (37-47); MEAN CELL VOLUME 88.7 fL (80-100); MEAN CORPUSCULAR HEMOGLOBIN 29.3 pg (25-34); MEAN CORPUSCULAR HGB CONC 33.1 g/dl (32-36); MEAN PLATELET VOLUME 11.6 fL (7.4-10.4); PLATELET COUNT 159 K/uL (130-400); RED BLOOD COUNT 4.26 M/uL (4.2-5.4); WHITE BLOOD COUNT 8.53 K/uL (4.8-10.8)
[2016-08-17 11:14] VITALS: BP 109/77; PULSE 75; O2SAT 98
[2016-09-01] MEDS ORDERED: INSDGIPEN SQ (10:28)
[2016-09-01] MEDS ORDERED: PEDICHW50 PO (10:28)
[2016-09-01] MEDS ORDERED: CHOL1TAB42 PO (10:49)
[2016-09-01] MEDS ORDERED: CYNI1000 SQ (10:49)
[2016-09-01] MEDS ORDERED: CALC250T8 PO (10:49)
[2016-09-01] MEDS ORDERED: NORE5TAB5 PO (10:55)
[2016-09-01] MEDS ORDERED: LORA10TA5 PO (16:53)
[2016-09-01] MEDS ORDERED: SERT50TA PO (19:59)
[2016-09-15] MEDS ORDERED: ACET-1256 PO (12:19)
[2016-10-01] MEDS ORDERED: ACET-749 PO (11:56)
[2017-02-27] MEDS ORDERED: [UNRECOGNIZED DRUG - OTHER] IM (02:23)
== END 2016-08-17 11:15 | disposition home or self-care (01) ==
LOC: C.EDB 10:07 → C.EDA 11:15
DX: T83.83XA Hemorrhage due to genitourinary prosthetic devices, implants and grafts, initial encounter (principal); Y83.1 Surgical operation with implant of artificial internal device as the cause of abnormal reaction of the patient, or of later complication, without mention of misadventure at the time of the procedure; E11.9 Type 2 diabetes mellitus without complications; Z98.51 Tubal ligation status; Z80.9 Family history of malignant neoplasm, unspecified; Z83.3 Family history of diabetes mellitus; Z82.0 Family history of epilepsy and other diseases of the nervous system; Z82.49 Family history of ischemic heart disease and other diseases of the circulatory system; Z79.4 Long term (current) use of insulin; Z79.899 Other long term (current) drug therapy

== ENCOUNTER 2016-08-23 14:56 | Emergency (ER) | payer OTHER ==
[~2016-08-23] VITALS: Ht 160 cm; Wt 144.0 kg
[2016-08-23 15:00] VITALS: TEMP 36.9; Ht 160 cm; Wt 144.0 kg
--- NOTE | 2016-08-23 15:28 | EMERGENCY ROOM VISIT NOTE ---
History Report prepared by Tati: Anders Niño Under the Supervision of: Dr. Ramone Foy M.D. First contact with patient: 15:17 Chief Complaint: ED VAG BLEEDING Stated Complaint: SEVERE BLEEDING, History of Present Illness The patient is a 36 year old female who presents to the Emergency Room with complaints of worsening vaginal bleeding over the past few months. The patient had an IUD placed a few months ago, and it fell out a few weeks ago. She has been put on Aygestin since then. She has had multiple ER and Gynecological evaluations since then for reported heavy bleeding. The patient states that she is having abdominal cramping, a headache, and she states that she is going through a tampon every 30 minutes. She states that around 1200 today she passed a clot. She is denying any fever, vomiting, or loss of consciousness. The patient states that she has a scheduled ablation for . Source of History: patient Onset: past few months Position: other (vagina) Quality: other (bleeding) Timing: worsening Associated Symptoms: + abdominal pain, + headache, No LOC, No fevers, No vomiting Review of Systems See HPI for pertinent positives & negatives. A total of 10 systems reviewed and were otherwise negative. Past Medical & Surgical Medical Problems: (1) Diab Sury Wo Compl, Type Ii Or Unspec Type, Not Uncntrld (2) Tubal Ligation Status Family History Cancer Diabetes mellitus FHx: seizures Heart disease Hypertension Social History Smoking Status: Never Smoker Alcohol Use: none Drug Use: none Marital Status: single Housing Status: lives with family Occupation Status: employed Current/Historical Medications Scheduled Calcium Citrate (Calcium Citrate), 2 TAB PO BID Cholecalciferol (Vitamin D), 5,000 UNITS PO QPM Cyanocobalamin (Cyanocobalamin), 1,000 UNITS SQ [id number] Insulin Glargine (Lantus Solostar), 60 UNITS SC QAM Loratadine (Claritin), 10 MG PO QAM Norethindrone (Aygestin), 5 MG PO BID Omeprazole (Prilosec), 20 MG PO DAILY Pediatric Multiple Vitamin W/ (Flintstones Chewable), 1 TAB PO BID Sertraline (Zoloft), 50 MG PO QAM Allergies Coded Allergies: Metformin (Verified Allergy, Unknown, "SEVERE DIARRHEA", 08/17/16) Prednisone (Verified Adverse Reaction, Unknown, increased blood sugars, ) Physical Exam Vital Signs Date Time Temp Pulse Resp B/P Pulse Ox O2 Delivery O2 Flow Rate FiO2 08/23/16 16:45 63 18 115/73 97 08/23/16 16:35 63 18 115/73 97 08/23/16 15:00 36.9 70 18 129/83 97 Room Air Physical Exam GENERAL: Patient is well appearing and in no acute distress. HEENT: No acute trauma, normocephalic atraumatic, mucous membranes moist, no nasal congestion, no scleral icterus. NECK: No stridor, no adenopathy, no meningismus, trachea is midline. LUNGS: No dyspnea. Clear to auscultation and equal bilaterally. No wheeze, no rhonchi. HEART: Regular rate and rhythm. No murmurs, rubs, gallops appreciated. ABDOMEN: Soft, nontender, bowel sounds positive, no masses appreciated, no peritonitis. BACK: No midline tenderness, no CVA tenderness PELVIC: Small clot in the posterior vaginal vault. No active bleeding from cervical Os EXTREMITIES: Normal motion all extremities, no cyanosis, no edema. NEUROLOGIC: Alert and oriented, no acute motor or sensory deficits, no focal weakness, cranial nerves grossly intact. SKIN: No rash, no jaundice, no diaphoresis. Medical Decision & Procedures Laboratory Results 08/23/16 16:17 Red Blood Count 4.28, Mean Corpuscular Volume 89.7, Mean Corpuscular Hemoglobin 30.1, Mean Corpuscular Hemoglobin Concent 33.6, Mean Platelet Volume 12.2, Neutrophils (%) (Auto) 64.1, Lymphocytes (%) (Auto) 27.4, Monocytes (%) (Auto) 6.7, Eosinophils (%) (Auto) 1.6, Basophils (%) (Auto) 0.1, Neutrophils # (Auto) 4.94, Lymphocytes # (Auto) 2.11, Monocytes # (Auto) 0.52, Eosinophils # (Auto) 0.12, Basophils # (Auto) 0.01 Test 08/23/16 15:30 08/23/16 16:17 Urine Color YELLOW Urine Appearance CLEAR (CLEAR) Urine pH 6.0 (4.5-7.5) Urine Specific [place] 1.028 (1.000-1.030) Urine Protein NEG (NEG) Urine Glucose (UA) NEG (NEG) Urine Ketones TRACE (NEG) Urine Occult Blood 3+ (NEG) Urine Nitrite NEG (NEG) Urine Bilirubin NEG (NEG) Urine Urobilinogen NEG (NEG) Urine Leukocyte Esterase NEG (NEG) Urine WBC (Auto) 1-5 /hpf (0-5) Urine RBC (Auto) >30 /hpf (0-4) Urine Hyaline Casts (Auto) 0 /lpf (0-5) Urine Epithelial Cells (Auto) 0-5 /lpf (0-5) Urine Bacteria (Auto) NEG (NEG) Urine Crystals CALCIUM OXALATE (NONE Urine Test NEG (NEG) White Blood Count 7.71 K/uL (4.8-10.8) Red Blood Count 4.28 M/uL (4.2-5.4) Hemoglobin 12.9 g/dL (12.0-16.0) Hematocrit 38.4 % (37-47) Mean Corpuscular Volume 89.7 fL (80-100) Mean Corpuscular Hemoglobin 30.1 pg (25-34) Mean Corpuscular Hemoglobin Concent 33.6 g/dl (32-36) Platelet Count 151 K/uL (130-400) Mean Platelet Volume 12.2 fL (7.4-10.4) Neutrophils (%) (Auto) 64.1 % Lymphocytes (%) (Auto) 27.4 % Monocytes (%) (Auto) 6.7 % Eosinophils (%) (Auto) 1.6 % Basophils (%) (Auto) 0.1 % Neutrophils # (Auto) 4.94 K/uL (1.4-6.5) Lymphocytes # (Auto) 2.11 K/uL (1.2-3.4) Monocytes # (Auto) 0.52 K/uL (0.11-0.59) Eosinophils # (Auto) 0.12 K/uL (0-0.5) Basophils # (Auto) 0.01 K/uL (0-0.2) RDW Standard Deviation 45.8 fL (36.4-46.3) RDW Coefficient of Variation 13.9 % (11.5-14.5) Immature Granulocyte % (Auto) 0.1 % Immature Granulocyte # (Auto) 0.01 K/uL (0.00-0.02) Laboratory results as reviewed by me. ED Course 1517: The patient was evaluated in room A12. A complete history and physical exam was performed. 1543: I reevaluated the patient and gave her a pelvic exam. 1621: I discussed the patient's case with Jul[facility], and he states that the patient should continue Aygestin as an outpatient, and she should follow up with Dr. Urena. 1633: Reevaluated the patient. Discussed results and discharge instructions: She verbalized understanding and agreement. The patient is ready for discharge. Medical Decision Differential: Menstrual Bleeding, Dysfunctional Uterine Bleeding, Infectious, Ectopic , Bleeding Dyscrasia, amongst other pathologies entertained. 36 yr old female arrives for evaluation of vaginal bleeding. Known to me from just last week with essentially identical complaints. Some blood in vaginal vault though none currently coming from os. Stable vitals, hgb stable and patient looks well. Touched base with [facility] who advise continued aygestin. Discharged to home with plan to continue following with [facility] and instructions regarding return. Consults Time Called: 1617 Consulting Physician: Julissa [facility] Returned Call: 1621 I discussed the patient's case with Julissa [facility], and he states that the patient should continue Aygestin as an outpatient, and she should follow up with Dr. Urena. Impression Primary Impression: Excessive vaginal bleeding Scribe Attestation The scribe's documentation has been prepared under my direction and personally reviewed by me in its entirety. I confirm that the note above accurately reflects all work, treatment, procedures, and medical decision making performed by me. Departure Information Dispostion Home / Self-Care Referrals Chuck Urena M.D. (PCP) Forms HOME CARE DOCUMENTATION FORM, IMPORTANT VISIT INFORMATION Patient Instructions ED Bleed Irregular Vaginal, My [facility] [employer] Additional Instructions Please continue your Aygestin as instructed by Gynecology until your surgery. Return at any time if significant worsening or other concerns.
[2016-08-23 16:00] LABS: PREG INTERNAL NEGATIVE QC NEG CLEAR BACKGROUND; PREG INTERNAL POSITIVE QC POS CONTROL LINE
[2016-08-23 16:13] LABS: URINE APPEARANCE CLEAR (CLEAR); URINE BILIRUBIN NEG (NEG); URINE COLOR YELLOW; URINE EPITHELIAL CELL AUTO 0-5 /lpf (0-5); URINE NITRITE NEG (NEG); URINE SPECIFIC GRAVITY 1.028 (1.000-1.030); UROBILINOGEN NEG (NEG); ZZUR CULT IF INDIC CLEAN CATCH NO
[2016-08-23 16:19] LABS: MANUAL MICROSCOPIC REQUIRED? NO; REVIEW REQ? YES
[2016-08-23 16:25] LABS: BASO % 0.1 %; BASO ABS # 0.01 K/uL (0-0.2); COMPLETE YES; EOS % 1.6 %; HEMATOCRIT 38.4 % (37-47); IG% 0.1 %; LYMPH % 27.4 %; LYMPH ABS # 2.11 K/uL (1.2-3.4); MEAN CELL VOLUME 89.7 fL (80-100); MEAN CORPUSCULAR HEMOGLOBIN 30.1 pg (25-34); MEAN CORPUSCULAR HGB CONC 33.6 g/dl (32-36); MEAN PLATELET VOLUME 12.2 fL (7.4-10.4); MONO % 6.7 %; NEUT % 64.1 %; PLATELET COUNT 151 K/uL (130-400); RED BLOOD COUNT 4.28 M/uL (4.2-5.4); WHITE BLOOD COUNT 7.71 K/uL (4.8-10.8)
[2016-08-23 16:45] VITALS: BP 115/73; PULSE 63; O2SAT 97
[2016-09-01] MEDS ORDERED: PEDICHW50 PO (10:28)
[2016-09-01] MEDS ORDERED: INSDGIPEN SQ (10:28)
[2016-09-01] MEDS ORDERED: CYNI1000 SQ (10:49)
[2016-09-01] MEDS ORDERED: CHOL1TAB42 PO (10:49)
[2016-09-01] MEDS ORDERED: CALC250T8 PO (10:49)
[2016-09-01] MEDS ORDERED: NORE5TAB5 PO (10:55)
[2016-09-01] MEDS ORDERED: LORA10TA5 PO (16:53)
[2016-09-01] MEDS ORDERED: SERT50TA PO (19:59)
[2016-09-15] MEDS ORDERED: ACET-1256 PO (12:19)
[2016-10-01] MEDS ORDERED: ACET-749 PO (11:56)
[2017-02-27] MEDS ORDERED: [UNRECOGNIZED DRUG - OTHER] IM (02:23)
== END 2016-08-23 16:46 | disposition home or self-care (01) ==
LOC: C.EDB 14:57 → C.EDA 16:46
DX: N93.9 Abnormal uterine and vaginal bleeding, unspecified (principal); E11.9 Type 2 diabetes mellitus without complications; Z98.51 Tubal ligation status; Z80.9 Family history of malignant neoplasm, unspecified; Z83.3 Family history of diabetes mellitus; Z82.0 Family history of epilepsy and other diseases of the nervous system; Z82.49 Family history of ischemic heart disease and other diseases of the circulatory system; Z79.4 Long term (current) use of insulin; Z79.899 Other long term (current) drug therapy

== ENCOUNTER 2016-09-29 14:59 | Emergency (ER) | payer OTHER ==
[~2016-09-29] VITALS: Ht 160 cm; Wt 142.2 kg
[~2016-09-29 14:59] MED LIST changes: +ACET-1256 PO; +CALC250T8 PO; +CHOL1TAB42 PO; +CYNI1000 SQ; +INSDGIPEN SQ; +LORA10TA5 PO; +NORE5TAB5 PO; +PEDICHW50 PO; -PRLSR20 PO; +SERT50TA PO
[2016-09-29 15:09] VITALS: TEMP 37.2; Ht 160 cm; Wt 142.2 kg
[2016-09-29] MEDS ORDERED: ONDANSETRON INJ 2 MG/ML 2 ML VIAL IV STA (15:21)
[2016-09-29] MEDS ORDERED: SODIUM CHLORIDE 0.9% 1000ML 1,000 ML IV ONE (15:30)
[2016-09-29 15:35] VITALS: O2SAT 98
[2016-09-29 16:07] LABS: URINE APPEARANCE CLEAR (CLEAR); URINE BILIRUBIN NEG (NEG); URINE COLOR YELLOW; URINE NITRITE NEG (NEG); URINE PH 7.5 (4.5-7.5); URINE SPECIFIC GRAVITY 1.013 (1.000-1.030); UROBILINOGEN NEG (NEG); ZZUR CULT IF INDIC CLEAN CATCH NO
[2016-09-29 16:09] LABS: BASO % 0.3 %; BASO ABS # 0.02 K/uL (0-0.2); COMPLETE YES; EOS % 0.8 %; HEMATOCRIT 32.8 % (37-47); IG% 0.3 %; LYMPH % 33.9 %; LYMPH ABS # 2.55 K/uL (1.2-3.4); MEAN CELL VOLUME 82.8 fL (80-100); MEAN CORPUSCULAR HGB CONC 30.2 g/dl (32-36); MEAN PLATELET VOLUME 11.3 fL (7.4-10.4); MONO % 6.9 %; NEUT % 57.8 %; PLATELET COUNT 210 K/uL (130-400); RED BLOOD COUNT 3.96 M/uL (4.2-5.4); WHITE BLOOD COUNT 7.53 K/uL (4.8-10.8)
[2016-09-29 16:15] LABS: MANUAL MICROSCOPIC REQUIRED? NO; REVIEW REQ? NO
[2016-09-29 16:18] LABS: BUN/CREATININE RATIO 14.3 (10-20); CALCIUM 8.6 mg/dl (8.5-10.1); CREATININE 0.71 mg/dl (0.60-1.20); MAGNESIUM 2.3 mg/dl (1.8-2.4); POTASSIUM 3.8 mmol/L (3.5-5.1)
[2016-09-29 16:21] LABS: ALB/GLOB RATIO 0.9 (0.9-2)
[2016-09-29 16:23] LABS: PARTIAL THROMBOPLASTIN RATIO 0.9; PROTHROMBIN TIME (PATIENT) 10.4 SECONDS (9.0-12.0)
[2016-09-29] MEDS ORDERED: OMEP20TA PO (16:26)
--- NOTE | 2016-09-29 17:13 | DIAGNOSTIC IMAGING REPORT ---
CHEST 2 VIEWS ROUTINE CLINICAL HISTORY: dizzy. nausea. VERTIGO COMPARISON STUDY: 05/06/2016 FINDINGS: The heart is normal in size. There is no failure. There are equivocal minimal right basal airspace opacities versus a vascular summation. The left lung is clear. There are no pleural effusions.[ IMPRESSION: Minimal right basal airspace opacities versus a vascular summation. No evidence of failure. Electronically signed by: Robert Brown M.D. 09/29/2016 5:12 PM Dictated Date/Time: 09/29/2016 5:10 PM
[2016-09-29] MEDS ORDERED: ONDA4TAB10 SL (18:10)
[2016-09-29 18:24] VITALS: BP 135/82; PULSE 60; O2SAT 96
--- NOTE | 2016-09-29 20:11 | EMERGENCY ROOM VISIT NOTE ---
History First contact with patient: 15:11 Chief Complaint: NAUSEA Stated Complaint: LIGHTHEADED, NAUSEA Nursing Triage Summary: triage note: pt reports feeling lightheaded and nausea. "they are conerned that my blood count may be lower." pt reports "i am scheduled to have an ablasion of my uterus on tuesday." History of Present Illness The patient is a 36 year old female who presents to the Emergency Room with complaints of lightheadedness and nausea for the past one day. The patient's symptoms occurred while she was at work, and went from a sitting to a standing position. She did not fall or have emesis. She has not had chest pain, chest tightness, shortness of breath, or palpitations before or after the event. No numbness or paresthesias. The patient reports a history of heavy vaginal bleeding and is scheduled for an ablation in 2 days. Because of her heavy bleeding she has her hemoglobin checked regularly, she states 2 or 3 weeks ago her hemoglobin was 8. The patient has not had fever or chills. No abdominal pain. She rates her discomfort a 5/10. Review of Systems More than 10 systems were reviewed and otherwise negative with the exception of history of present illness. Past Medical/Surgical History Medical Problems: (1) Diab Sury Wo Compl, Type Ii Or Unspec Type, Not Uncntrld (2) Tubal Ligation Status Family History Cancer Diabetes mellitus FHx: seizures Heart disease Hypertension Social History Smoking Status: Never Smoker Alcohol Use: none Drug Use: none Marital Status: single Housing Status: lives with family Occupation Status: employed Current/Historical Medications Scheduled Calcium Citrate (Calcium Citrate), 500 MG PO BID Cholecalciferol (Vitamin D), 5,000 INTER.UNIT PO QPM Cyanocobalamin (Cyanocobalamin), 1,000 INTER.UNIT SQ [id number] Insulin Glargine (Lantus Solostar), 48 UNITS SC BID Loratadine (Claritin), 10 MG PO QAM Norethindrone (Aygestin), 5 MG PO 5XDAILY Omeprazole (Omeprazole), 20 MG PO DAILY Ondasetron Odt (Zofran Odt), 4 MG SL Q6H Pediatric Multiple Vitamin W/ (Flintstones Chewable), 1 TAB PO BID Sertraline (Zoloft), 50 MG PO QAM Scheduled PRN Acetaminophen (Tylenol), 500 MG PO UD PRN for HEADACHE/ABD CRAMPING Allergies Coded Allergies: Metformin (Verified Allergy, Unknown, "SEVERE DIARRHEA", 09/29/16) Prednisone (Verified Adverse Reaction, Unknown, increased blood sugars, ) Physical Exam Vital Signs Date Time Temp Pulse Resp B/P Pulse Ox O2 Delivery O2 Flow Rate FiO2 09/29/16 18:24 60 18 135/82 96 09/29/16 16:58 65 18 101/66 96 Room Air 09/29/16 16:07 61 09/29/16 15:35 98 Room Air 09/29/16 15:09 37.2 71 18 129/81 97 Room Air Pain Rating (0-10): 0 Physical Exam VITALS: Vitals are noted on the nurse's note and reviewed by myself. Vital signs stable. GENERAL: Well-developed, well-nourished, white female, who is in no acute distress and resting comfortably. Patient is cooperative with the examination. HEAD: Normocephalic atraumatic. EARS: External ear normal. External auditory canals clear, tympanic membranes pearly yung without erythema or effusion bilaterally. EYES: Pupils equal round and reactive to light and accommodation. Conjunctivae without injection, sclerae without icterus. Extraocular movements intact. NOSE: Patent, turbinates without inflammation or discharge. MOUTH: Mucous membranes moist. Tonsils are not enlarged. Pharynx without erythema, blood, or exudate. Uvula midline. Airway patent. NECK: Supple without nuchal rigidity. No lymphadenopathy. No thyromegaly. Cervical spine is nontender. HEART: Regular rate and rhythm without murmurs gallops or rubs. LUNGS: Clear to auscultation bilaterally without wheezes, rales or rhonchi. No retractions or accessory muscle use. ABDOMEN: Positive normal bowel sounds x 4. Soft, nontender, without masses or organomegaly. No guarding or rebound tenderness. MUSCULOSKELETAL: No muscle atrophy, erythema, or edema noted. Full range of motion without joint tenderness in all extremities. No tenderness to palpation. Normal gait. Strength 5/5 throughout. NEURO: Patient was alert and oriented to person place and time. CN II through XII grossly intact. Deep tendon reflexes 2+ throughout. No focal neurological deficits SKIN: The skin was without rashes, erythema, edema, or bruising. Capillary reflex less than 2 seconds. Medical Decision & Procedures ER Provider Diagnostic Interpretation: CHEST 2 VIEWS ROUTINE CLINICAL HISTORY: dizzy. nausea. VERTIGO COMPARISON STUDY: 05/06/2016 FINDINGS: The heart is normal in size. There is no failure. There are equivocal minimal right basal airspace opacities versus a vascular summation. The left lung is clear. There are no pleural effusions.[ IMPRESSION: Minimal right basal airspace opacities versus a vascular summation. No evidence of failure. Laboratory Results 09/29/16 15:40 Red Blood Count 3.96, Mean Corpuscular Volume 82.8, Mean Corpuscular Hemoglobin 25.0, Mean Corpuscular Hemoglobin Concent 30.2, Mean Platelet Volume 11.3, Neutrophils (%) (Auto) 57.8, Lymphocytes (%) (Auto) 33.9, Monocytes (%) (Auto) 6.9, Eosinophils (%) (Auto) 0.8, Basophils (%) (Auto) 0.3, Neutrophils # (Auto) 4.36, Lymphocytes # (Auto) 2.55, Monocytes # (Auto) 0.52, Eosinophils # (Auto) 0.06, Basophils # (Auto) 0.02 09/29/16 15:40 Test 09/29/16 00:00 09/29/16 15:40 Urine Color YELLOW Urine Appearance CLEAR (CLEAR) Urine pH 7.5 (4.5-7.5) Urine Specific [place] 1.013 (1.000-1.030) Urine Protein NEG (NEG) Urine Glucose (UA) NEG (NEG) Urine Ketones NEG (NEG) Urine Occult Blood NEG (NEG) Urine Nitrite NEG (NEG) Urine Bilirubin NEG (NEG) Urine Urobilinogen NEG (NEG) Urine Leukocyte Esterase NEG (NEG) Urine Test NEG (NEG) White Blood Count 7.53 K/uL (4.8-10.8) Red Blood Count 3.96 M/uL (4.2-5.4) Hemoglobin 9.9 g/dL (12.0-16.0) Hematocrit 32.8 % (37-47) Mean Corpuscular Volume 82.8 fL (80-100) Mean Corpuscular Hemoglobin 25.0 pg (25-34) Mean Corpuscular Hemoglobin Concent 30.2 g/dl (32-36) Platelet Count 210 K/uL (130-400) Mean Platelet Volume 11.3 fL (7.4-10.4) Neutrophils (%) (Auto) 57.8 % Lymphocytes (%) (Auto) 33.9 % Monocytes (%) (Auto) 6.9 % Eosinophils (%) (Auto) 0.8 % Basophils (%) (Auto) 0.3 % Neutrophils # (Auto) 4.36 K/uL (1.4-6.5) Lymphocytes # (Auto) 2.55 K/uL (1.2-3.4) Monocytes # (Auto) 0.52 K/uL (0.11-0.59) Eosinophils # (Auto) 0.06 K/uL (0-0.5) Basophils # (Auto) 0.02 K/uL (0-0.2) RDW Standard Deviation 42.7 fL (36.4-46.3) RDW Coefficient of Variation 14.1 % (11.5-14.5) Immature Granulocyte % (Auto) 0.3 % Immature Granulocyte # (Auto) 0.02 K/uL (0.00-0.02) Prothrombin Time 10.4 SECONDS (9.0-12.0) Prothromb Time International Ratio 1.0 (0.9-1.1) Activated Partial Thromboplast Time 22.9 SECONDS (21.0-31.0) Partial Thromboplastin Ratio 0.9 Anion Gap 6.0 mmol/L (3-11) Est Creatinine Clear Calc Drug Dose 149.8 ml/min Estimated GFR () 125.2 Estimated GFR (Non- 108.1 BUN/Creatinine Ratio 14.3 (10-20) Calcium Level 8.6 mg/dl (8.5-10.1) Magnesium Level 2.3 mg/dl (1.8-2.4) Total Bilirubin 0.4 mg/dl (0.2-1) Aspartate Amino Transf (AST/SGOT) 13 U/L (15-37) Alanine Aminotransferase (ALT/SGPT) 40 U/L (12-78) Alkaline Phosphatase 68 U/L (45-117) Bedside Troponin I 0.000 ng/ml (0-0.045) Total Protein 7.5 gm/dl (6.4-8.2) Albumin 3.5 gm/dl (3.4-5.0) Globulin 4.0 gm/dl (2.5-4.0) Albumin/Globulin Ratio 0.9 (0.9-2) Lipase 92 U/L (73-393) Medications Administered Medications (Trade) Dose Ordered Sig/Asim Route Start Time Stop Time Status Last Admin Dose Admin Sodium Chloride (Nss 1000ml) 1,000 ml @ 999 mls/hr Q1H1M ONCE IV 09/29/16 15:30 09/29/16 16:30 DC 09/29/16 15:43 999 MLS/HR Ondansetron HCl (Zofran Inj) 4 mg NOW STAT IV 09/29/16 15:21 09/29/16 15:25 DC 09/29/16 15:43 4 MG ED Course Physical exam and history were performed. Nursing notes and EMR were reviewed. Patient appears to have had an episode of lightheadedness, dizziness, nausea earlier today. EKG was performed and was normal sinus rhythm at 61 beats for minute without acute ST elevation. IV access was established and labs were obtained. Patient was hydrated and medicated as above. Chest x-ray was performed. The patient's blood work is as above and was reviewed. She does not have a significantly elevated white blood cell count, bandemia, or gross electrolyte imbalance. She is mildly anemic at 9.9, however this appears stable for her, and is better than her expected results. The patient is not and does not have evidence of UTI. Chest x-ray is as above. Clinically her course does not seem consistent with pneumonia, and I suspect vascular patient. Troponin is negative. The patient remained in stable condition throughout her Emergency Department stay. She did not have any worsening of her symptoms here in the department. She was able to ambulate without difficulty and her nausea has resolved. Clinically her symptoms could be related to dehydration or possible viral illness. She does not appear to have an emergent life-threatening process, and much of her concern was that her symptoms today may interfere with her uterine ablation scheduled in 2 days. At this point the patient is well for discharge and should follow with her PCP. She was otherwise invited back to the ER with any new, worsening, or concerning symptoms. The chart was completed utilizing [employer] Voice Recognition Software. Grammatical errors, random word insertions, pronoun errors, and incomplete sentences are an occasional consequence of this system due to software limitations, ambient noise, and hardware issues. Any formal questions or concerns about the content, text, or information contained within the body of this dictation should be directly addressed to the provider for clarification. . Medical Decision Differential diagnosis: Etiologies such as benign positional vertigo, dehydration, hypovolemia, anemia, tumor, infection, hypoglycemia, electrolyte abnormalities, cardiac sources, intracerebral event, toxicologic, neurologic, as well as others were entertained. Impression Primary Impression: Dizziness Additional Impression: Nausea Departure Information Dispostion Home / Self-Care Condition GOOD Prescriptions Ondasetron Odt (ZOFRAN ODT) 4 Mg Tab 4 MG SL Q6H for Nausea, #12 TAB Prov: Jan Bray PA-C 09/29/16 Forms HOME CARE DOCUMENTATION FORM, IMPORTANT VISIT INFORMATION Patient Instructions My [facility] Additional Instructions You were seen and evaluated today on an emergency basis only. This is not a substitute for, or an effort to provide, complete comprehensive medical care. It is not possible to recognize and treat all injuries or illnesses in a single emergency department visit. For this reason it is recommended that you followup with your primary care physician in the next week for recheck of your condition. Drink clear fluids and remain well hydrated. Zofran 1 tablet every 6 hrs as needed for nausea. You are welcome to return to the emergency department anytime with new, worsening, or concerning symptoms. Problem Qualifiers
[2016-10-01] MEDS ORDERED: ACET-749 PO (11:56)
[2017-02-27] MEDS ORDERED: [UNRECOGNIZED DRUG - OTHER] IM (02:23)
== END 2016-09-29 18:25 | disposition home or self-care (01) ==
LOC: C.EDB 15:01 → C.EDA 18:25
DX: R42 Dizziness and giddiness (principal); R11.0 Nausea; E11.9 Type 2 diabetes mellitus without complications; D64.9 Anemia, unspecified; Z98.51 Tubal ligation status; Z80.9 Family history of malignant neoplasm, unspecified; Z83.3 Family history of diabetes mellitus; Z82.0 Family history of epilepsy and other diseases of the nervous system; Z82.49 Family history of ischemic heart disease and other diseases of the circulatory system; Z79.4 Long term (current) use of insulin; Z79.899 Other long term (current) drug therapy

== ENCOUNTER → 2016-10-01 | Day surgery (SDC) | payer OTHER ==
[2016-09-15 12:19] VITALS: BMI 55.0
--- NOTE | 2016-09-15 13:01 | PAT Medication Instructions ---
Service Date September 15, 2016. Current Home Medication List Acetaminophen (Tylenol), 500 MG PO UD PRN for HEADACHE/ABD CRAMPING Calcium Citrate (Calcium Citrate), 500 MG PO BID Cholecalciferol (Vitamin D), 5,000 INTER.UNIT PO QPM Cyanocobalamin (Cyanocobalamin), 1,000 INTER.UNIT SQ [id number] Insulin Glargine (Lantus Solostar), 42 UNITS SC BID Loratadine (Claritin), 10 MG PO QAM Norethindrone (Aygestin), 5 MG PO 5XDAILY Pediatric Multiple Vitamin W/ (Flintstones Chewable), 1 TAB PO BID Sertraline (Zoloft), 50 MG PO QAM Medication Instructions For Your Scheduled Surgery Cyanocobalamin (Cyanocobalamin), 1,000 INTER.UNIT SQ [id number] (continue as usual ) Norethindrone (Aygestin), 5 MG PO 5XDAILY (patient can check with surgeon for instructions) - Hold the following medications the morning of surgery: Pediatric Multiple Vitamin W/ (Flintstones Chewable), 1 TAB PO BID Loratadine (Claritin), 10 MG PO QAM Calcium Citrate (Calcium Citrate), 500 MG PO BID - Take the following medications the morning of surgery with a sip of water: Sertraline (Zoloft), 50 MG PO QAM Acetaminophen (Tylenol), 500 MG PO UD PRN for HEADACHE/ABD CRAMPING (if needed) - Take the following medications as scheduled the night before surgery: Pediatric Multiple Vitamin W/ (Flintstones Chewable), 1 TAB PO BID. Calcium Citrate (Calcium Citrate), 500 MG PO BID Cholecalciferol (Vitamin D), 5,000 INTER.UNIT PO QPM Insulin Glargine (Lantus Solostar), 42 UNITS SC BID Acetaminophen (Tylenol), 500 MG PO UD PRN for HEADACHE/ABD CRAMPING - For Insulin Dependent Diabetic patients: Test blood sugar A.M. of surgery. - If blood sugar is greater than 150, take half of your half of morning Lantus dose (21 units) - If blood sugar is less than 150, do not take any: Lantus If you have any questions please call us at [phone] or [phone] ( [place]) or [phone]
[2016-09-15 13:17] LABS: BASO % 0.3 %; BASO ABS # 0.02 K/uL (0-0.2); COMPLETE YES; EOS % 0.8 %; HEMATOCRIT 30.9 % (37-47); IG% 0.1 %; LYMPH ABS # 2.21 K/uL (1.2-3.4); MEAN CELL VOLUME 86.6 fL (80-100); MEAN CORPUSCULAR HEMOGLOBIN 26.9 pg (25-34); MEAN CORPUSCULAR HGB CONC 31.1 g/dl (32-36); MEAN PLATELET VOLUME 11.1 fL (7.4-10.4); MONO % 5.4 %; NEUT % 64.4 %; PLATELET COUNT 179 K/uL (130-400); RED BLOOD COUNT 3.57 M/uL (4.2-5.4); WHITE BLOOD COUNT 7.63 K/uL (4.8-10.8)
[2016-09-15 14:15] LABS: BUN/CREATININE RATIO 21.9 (10-20); CALCIUM 8.7 mg/dl (8.5-10.1); CREATININE 0.77 mg/dl (0.60-1.20); POTASSIUM 4.1 mmol/L (3.5-5.1)
[2016-09-15 14:17] LABS: ALKALINE PHOSPHATASE 65 U/L (45-117); ALT/SGPT 30 U/L (12-78); AST/SGOT 12 U/L (15-37)
[~2016-10-01] VITALS: Ht 160 cm; Wt 142.8 kg
[~2016-10-01] MED LIST changes: +ACET-749 PO; +ATROPINE SULFATE 0.1 MG/ML 5ML SYR IV PRN; +CIPR1TAB10 PO; +DEXAMETHASONE SOD INJ 4 MG/ML VIAL ONE; +EpHEDrine SULFATE 50MG/5ML SYR ONE; +EpHEDrine SULFATE INJ 50 MG/ML AMP IV PRN; +FENTANYL CITRATE INJ 50 MCG/1 ML 2 ML VIAL IV PRN; +FENTANYL CITRATE INJ 50 MCG/1 ML 2 ML VIAL ONE; +FERRTAB18 PO; +GLYCOPYRROLATE INJ 0.2 MG/ML VIAL ONE; +HYDROCODONE/ACETAMOPHEN 5/325MG TAB PO PRN; +IBUPROFEN 600 MG TAB PO PRN; +KETOROLAC TROMETHAMINE 30 MG/ML VIAL IV. PRN; +LACTATED RINGER'S 1000ML 1,000 ML IV SCH; +LIDOCAINE HCL 2% 2 ML VIAL (20MG/ML) ONE; +MIDAZOLAM HCL 1 MG/ML 2ML VIAL ONE; +MoRPHine SULFATE 2 MG/ML CARP IV PRN; +NEOSTIGMINE METHYLSULFATE 5 MG/5 ML SYR ONE; +OMEP20TA PO; +ONDA4TAB10 SL; +ONDANSETRON INJ 2 MG/ML 2 ML VIAL IV PRN; +ONDANSETRON INJ 2 MG/ML 2 ML VIAL ONE; +OXYCODONE/ACETAMINOPHEN 5-325 TAB PO PRN; +PROPOFOL IV EMULSION 10 MG/ML 20 ML VIAL IV ONE; +ROCURONIUM BROMIDE 10 MG/ML 5 ML VIAL ONE; +SILVER NITR/POTASSIUM NITRATE APPLICATOR ONE; +SODIUM CHLORIDE 0.9% 1000ML 1,000 ML IV SCH; +SUCCINYLCHOLINE 100MG/5ML SYR IV ONE; +[UNRECOGNIZED DRUG - OTHER] IM
[2016-10-01 09:03] VITALS: BP 146/66; PULSE 72; TEMP 36.7; O2SAT 97; Ht 160 cm; Wt 142.8 kg
--- NOTE | 2016-10-01 09:57 | History & Physical Bridge Note ---
H&P Re-Evaluation Bridge Note: I have examined the patient, reviewed the History & Physical and in the interval since the performance of the History & Physical I have noted the following changes of clinical significance: No changes noted
--- NOTE | 2016-10-01 11:53 | [facility] Post Operative Brief Note ---
Immediate Operative Summary Operative Date Oct 01, 2016. Pre-Operative Diagnosis Abnormal uterine bleeding Post-Operative Diagnosis same Procedure(s) Performed Hysteroscopy, D&C, Novasure endometrial ablation Surgeon Romel Night Auditor Surgeon(s) Raji Estimated Blood Loss 15 ml. Findings large uterus Fluids (cc crystalloids) 1100 ml. LR Specimens endometrial currettings Drains none Anesthesia GET Complication(s) None Disposition Recovery Room / PACU
--- NOTE | 2016-10-01 11:58 | Discharge Instructions ---
Discharge Instructions Date of Service Oct 01, 2016. Admission Reason for Admission: Abnormal Uterine Bleeding Discharge Discharge Diagnosis / Problem: abnormal uterine bleeding Discharge Goals Goal(s): Routine recovery after surgery, Continuing [employer] care Activity Recommendations Activity Limitations: as noted below Lifting Limitations: gradually increase as tolerated Exercise/Sports Limitations: as tolerated May Resume Sexual Activity: after follow-up appointment Shower/Bathe: no limitations Driving or Machine Use: resume 1 day after discharge . Instructions / Follow-Up Instructions / Follow-Up ACTIVITY RECOMMENDATIONS: * Avoid tampons, douching, hot tubs, pools, and intercourse until bleeding has stopped. * May shower as usual. * No strenuous activity for 24-48 hours. After 24-48 hours, you can do anything you feel like doing (driving and sports are okay). RETURN TO SCHOOL/WORK: * You may return to school or work after 24 hours unless specified by your physician. DIET: * Resume previous diet. MEDICATIONS: Resume previous medications unless instructed otherwise by your surgeon. Ibuprofen 200mg 2-3 tablets every 4-6 hours as needed --OR-- Aleve 2 tablets every 8-12 hours as needed for post-operative discomfort Medications are over the counter. Tylenol may be used if above medications are contraindicated or not preferred. Medication should be taken with food or milk. do not take on an empty stomach. SPECIAL CARE INSTRUCTIONS: * Check temperature twice daily for one week. Report any elevation over 101 degrees. * Call office if you experience increased pelvic pain or discomfort not relieved by pain medicine, if you have foul smelling vaginal discharge, if you have bleeding that is heavier than a normal menstrual flow. If you are changing a maxi pad every 1- 2 hours, this is too heavy. vaginal spotting is normal for 1-2 weeks. FOLLOW UP VISIT: Call your doctor's office for a post-operative visit. Current Hospital Diet Patient's current hospital diet: Discharge Diet Recommended Diet: Regular Diet Procedures Procedures Performed: Hysteroscopy, D&C, Novasure endometrial ablation Pending Studies Studies pending at discharge: no Medical Emergencies . Who to Call and When: Medical Emergencies: If at any time you feel your situation is an emergency, please call 911 immediately. . Non-Emergent Contact Non-Emergency issues call your: Primary Care Provider . . "Provider Documentation" section prepared by Chuck Urena. . VTE Core Measure Inpt VTE Proph given/why not?: Treatment not indicated
--- NOTE | 2016-10-01 12:25 | Anesthesiology Progress Note ---
Anesthesia Post Op Note Date & Time Oct 01, 2016 at 12:25 Vital Signs Pain Intensity: 2 Vital Signs Past 12 Hours Date Time Temp Pulse Resp B/P (MAP) Pulse Ox O2 Delivery O2 Flow Rate FiO2 10/01/16 12:20 87 14 122/79 100 Room Air 10/01/16 12:10 81 21 137/64 100 Mask 10 10/01/16 12:02 36.0 89 18 110/76 100 Mask 10 10/01/16 09:03 36.7 72 22 146/66 (92) 97 Room Air Notes Mental Status: alert / awake / arousable, participated in evaluation Pt Amnestic to Procedure: Yes Nausea / Vomiting: adequately controlled Pain: adequately controlled Airway Patency, RR, SpO2: stable & adequate BP & HR: stable & adequate Hydration State: stable & adequate Anesthetic Complications: no major complications apparent
[2016-10-01 12:50] VITALS: BP 133/65; PULSE 78; TEMP 37.2; O2SAT 94
[2016-10-01 13:20] VITALS: BP 131/67; PULSE 82; TEMP 36.7; O2SAT 97
[2016-10-01 13:50] VITALS: BP 124/63; PULSE 85; TEMP 37.2; O2SAT 95
--- NOTE | 2016-10-01 23:19 | OPERATIVE REPORT ---
DATE OF OPERATION: 10/01/2016 PREOPERATIVE DIAGNOSIS: Abnormal uterine bleeding. POSTOPERATIVE DIAGNOSIS: Same. PROCEDURE: Hysteroscopy, D&C and NovaSure ablation. SURGEON: Chuck Urena MD BOLT LABELER: Dr. Alegria ANESTHESIA: General. ESTIMATED BLOOD LOSS: 10 mL. COMPLICATIONS: None. FLUIDS: ____ URINE OUTPUT: 200 mL. CLINICAL HISTORY: The patient is a 36-year-old female who presents for a hysteroscopy, D&C and NovaSure ablation. She has had a workup for abnormal bleeding and desires definitive treatment. She is prepped for a NovaSure. The risks, benefits and alternatives to the procedure were given in the office. A time-out was called prior to the start of the procedure. DESCRIPTION OF PROCEDURE: After satisfactory general endotracheal anesthesia, the patient was placed in dorsal lithotomy position. A catheter was then used to empty the bladder of 200 mL of clear urine. A single tooth tenaculum was then placed on the anterior lip of the cervix. A weighted speculum was placed in the posterior ____ The cervix was somewhat dilated. Uterus sounded to approximately 10.5 to 11 cm. A hysteroscope was then inserted using saline the contents of the pelvic uterine cavity were then visualized. There were no abnormal lesions. There was a thickened endometrium that was noted by excess tissue, otherwise no fibroids. The NovaSure was then set up. The cavity length was determined to be 6.5 ____ and the cavity width was 5.0. Then the time of the ablation after testing the NovaSure device was 48 seconds and a complete ____ was noted. The hysteroscope was then reinserted after the NovaSure device was removed. Most areas of the uterine cavity were ablated. There were some areas that were left untreated due to the size of the uterine cavity. At the end of the procedure, the total fluid deficit was 150 mL. The blood loss was 10 mL. The final sponge, needle and instrument count were found to be correct. All remaining instruments were removed from the vagina. The patient was then placed supine on a stretcher. She was taken out ____ discharged later as an outpatient. I attest to the content of the Intraoperative Record and any orders documented therein. Any exception s are noted below.
== END | disposition home or self-care (01) ==
LOC: C.ACU 08:39
PROVIDERS: ATTEND Obstetrics & Gynecology
DX: N93.8 Other specified abnormal uterine and vaginal bleeding (principal); E11.9 Type 2 diabetes mellitus without complications; E78.5 Hyperlipidemia, unspecified; K76.0 Fatty (change of) liver, not elsewhere classified; G47.33 Obstructive sleep apnea (adult) (pediatric); E66.01 Morbid (severe) obesity due to excess calories; F32.9 Major depressive disorder, single episode, unspecified; Z79.4 Long term (current) use of insulin; Z79.899 Other long term (current) drug therapy

== ENCOUNTER 2016-11-10 10:17 | Emergency (ER) | payer OTHER ==
[~2016-11-10] VITALS: Ht 160 cm; Wt 138.8 kg
[~2016-11-10 10:17] MED LIST changes: -ATROPINE SULFATE 0.1 MG/ML 5ML SYR IV PRN; -CIPR1TAB10 PO; -DEXAMETHASONE SOD INJ 4 MG/ML VIAL ONE; -EpHEDrine SULFATE 50MG/5ML SYR ONE; -EpHEDrine SULFATE INJ 50 MG/ML AMP IV PRN; -FENTANYL CITRATE INJ 50 MCG/1 ML 2 ML VIAL IV PRN; -FENTANYL CITRATE INJ 50 MCG/1 ML 2 ML VIAL ONE; -FERRTAB18 PO; -GLYCOPYRROLATE INJ 0.2 MG/ML VIAL ONE; -HYDROCODONE/ACETAMOPHEN 5/325MG TAB PO PRN; -IBUPROFEN 600 MG TAB PO PRN; +INSDGIPEN SC; -INSDGIPEN SQ; -KETOROLAC TROMETHAMINE 30 MG/ML VIAL IV. PRN; -LACTATED RINGER'S 1000ML 1,000 ML IV SCH; -LIDOCAINE HCL 2% 2 ML VIAL (20MG/ML) ONE; -MIDAZOLAM HCL 1 MG/ML 2ML VIAL ONE; -MoRPHine SULFATE 2 MG/ML CARP IV PRN; -NEOSTIGMINE METHYLSULFATE 5 MG/5 ML SYR ONE; -ONDANSETRON INJ 2 MG/ML 2 ML VIAL IV PRN; -ONDANSETRON INJ 2 MG/ML 2 ML VIAL ONE; -OXYCODONE/ACETAMINOPHEN 5-325 TAB PO PRN; -PROPOFOL IV EMULSION 10 MG/ML 20 ML VIAL IV ONE; -ROCURONIUM BROMIDE 10 MG/ML 5 ML VIAL ONE; -SILVER NITR/POTASSIUM NITRATE APPLICATOR ONE; -SODIUM CHLORIDE 0.9% 1000ML 1,000 ML IV SCH; -SUCCINYLCHOLINE 100MG/5ML SYR IV ONE; -[UNRECOGNIZED DRUG - OTHER] IM
[2016-11-10 10:23] VITALS: TEMP 36.9; Ht 160 cm; Wt 138.8 kg
[2016-11-10] MEDS ORDERED: KETOROLAC TROMETHAMINE 30 MG/ML VIAL IV STA (10:42)
--- NOTE | 2016-11-10 10:52 | EMERGENCY ROOM VISIT NOTE ---
History Report prepared by Tati: Anthony Paris Under the Supervision of: Dr. Ifeanyi Tripp M.D. First contact with patient: 10:28 Chief Complaint: ABDOMINAL PAIN Stated Complaint: ABDOMINAL PAIN History of Present Illness The patient is a 36 year old female who presents to the Emergency Room with complaints of constant abdominal pain starting a couple of months ago. She rates her pain as a 5/10 in severity. The patient states that the pain is worse on left side and worsened with pressure. The patient reports that she visited her QUALITATIVE RESEARCHER five days ago where her blood work showed elevated white blood cells and inflammation. She states that she was discharged home with a prescription for Cipro once a day, which she admits she has been taking. The patient states that she was given the antibiotics as a precaution for an infection in her uterus and a UTI. She also reports experiencing lower back pain, diaphoresis, nausea, and diarrhea last night. She states that she did not eat anything abnormal causing these symptoms and only had half of an egg sandwich and some pretzels that morning. The patient reports a history of diabetes, which she states her blood sugar levels fluctuates, and fatty liver disease. The patient reports that she also has a history of a gastric bypass in May, cholecystectomy, and uterine ablation on October [address] Mock. She states that she had an IUD in june, which caused bleeding and anemia. She states that she has fibroids and is still bleeding lightly. She reports that she is using hormones and shots to treat these symptoms. She reports that she had an ultrasound that she is still waiting for results for. Source of History: patient Onset: a couple of months ago Position: abdomen Symptom Intensity: 5/10 Timing: constant Modifying Factors (Worsening): other (pressure) Associated Symptoms: + diaphoresis, + nausea, + diarrhea Review of Systems See HPI for pertinent positives & negatives. A total of 10 systems reviewed and were otherwise negative. Past Medical & Surgical Medical Problems: (1) Diab Sury Wo Compl, Type Ii Or Unspec Type, Not Uncntrld (2) Tubal Ligation Status Old medical records were reviewed. Nurse's notes were reviewed and I agree with. Family History Cancer Diabetes mellitus FHx: seizures Heart disease Hypertension Social History Smoking Status: Never Smoker Alcohol Use: none Drug Use: none Marital Status: single Housing Status: lives with family Occupation Status: employed Current/Historical Medications Scheduled Calcium Citrate (Calcium Citrate), 500 MG PO BID Cholecalciferol (Vitamin D), 5,000 INTER.UNIT PO QPM Ciprofloxacin Hcl (Cipro), 500 MG PO BID Cyanocobalamin (Cyanocobalamin), 1,000 INTER.UNIT SQ [id number] Insulin Glargine (Lantus Solostar), 50 UNITS SC BID Iron-Vitamin C (Vitron-C), 1 TAB PO DAILY Loratadine (Claritin), 10 MG PO QAM Norethindrone (Aygestin), 10 MG PO BID Omeprazole (Omeprazole), 20 MG PO DAILY Pediatric Multiple Vitamin W/ (Flintstones Chewable), 1 TAB PO BID Sertraline (Zoloft), 50 MG PO QAM Scheduled PRN Acetaminophen (Tylenol), 500 MG PO UD PRN for HEADACHE/ABD CRAMPING Allergies Coded Allergies: Metformin (Unverified Adverse Reaction, Unknown, "SEVERE DIARRHEA", ) Prednisone (Verified Adverse Reaction, Unknown, increased blood sugars, 04/17) Physical Exam Vital Signs Date Time Temp Pulse Resp B/P (MAP) Pulse Ox O2 Delivery O2 Flow Rate FiO2 11/10/16 14:43 68 16 138/74 96 11/10/16 13:10 67 16 142/91 95 Room Air 11/10/16 11:27 62 16 107/57 95 Room Air 11/10/16 10:23 36.9 77 18 145/96 99 Room Air Physical Exam General: Well developed well nourished non ill appearing middle aged female in no acute distress, breathing comfortably on room air. Normal speech HEENT: Normal cephalic atraumatic. Pupils are equal round and reactive to light. Extraocular movements are intact. Oropharynx is pink with moist mucous membranes. No swelling of the mouth lips or tongue. Neck: Supple with a midline trachea. No meningeal signs or stiffness, no JVD or bruits. No Stridor. Chest: Clear to auscultation bilaterally. No wheezes or rhonchi. No increased work of breathing. Heart: regular rate and rhythm. Abdomen: Mildly diffusive tenderness mostly in the epigastric region, nondistended without rebound guarding or rigidity. Well healing incisions from laparoscopy. No hernia seen or felt. Extremities: No cyanosis clubbing or edema. No calf tenderness or assymetry Spine/Back. Non tender to palpation. No CVA tenderness Skin: Good turgor without rashes. Neurologic exam: Cranial nerves two through 12 are intact. Motor and sensation are intact and symmetrical throughout. Medical Decision & Procedures ER Provider Diagnostic Interpretation: CT results as stated below per my review and radiologist interpretation: ABD/PELVIS IV CONTRAST ONLY HISTORY:36 yearsFemale. Patient presents with diffuse acute abdominal pain. COMPARISON: CT abdomen and pelvis 04/17/2016. TECHNIQUE: Multiple axial CT images of the abdomen were obtained following the intravenous administration of 116 mL Optiray 320. FINDINGS: There is minimal dependent subsegmental bibasilar atelectasis. No pneumoperitoneum. Inferior cardiac chambers are unremarkable. The spleen and liver are again mildly enlarged with the liver measuring up to 16 cm at the midclavicular line and the spleen measuring up to 16 cm. Prior cholecystectomy. The pancreas and adrenal glands appear normal. The kidneys, ureters, urinary bladder, uterus and adnexa are within normal limits. 1.6 x 2.0 cm cyst of the anterior interpolar right kidney is noted. The abdominal aorta is normal in both course and caliber. There is no bulky retroperitoneal adenopathy. There is been prior gastric bypass which appears to be a Ralph-en-Y. No evidence of anastomotic dehiscence. No fluid collections or inflammatory changes are seen within the abdomen. No evidence of bowel obstruction. There is some high attenuating material noted within small bowel of the lower pelvis suggesting ingested material. The colon and appendix appear normal. Patient obesity is noted. Facet arthropathy involves the lower lumbar spine. Degenerative changes are seen within the sacroiliac joints. IMPRESSION: 1. No acute intra-abdominal or intrapelvic abnormality. Normal appendix. 2. Prior Ralph-en-Y gastric bypass without evidence of complication. No bowel obstruction. 3. Mild hepatosplenomegaly. 4. Prior cholecystectomy. The above report was generated using voice recognition software. It may contain grammatical, syntax or spelling errors. Electronically signed by: Jossue Mata M.D. 11/10/2016 12:52 PM Dictated Date/Time: 11/10/2016 12:44 PM Laboratory Results 11/10/16 10:50 Red Blood Count 4.79, Mean Corpuscular Volume 81.2, Mean Corpuscular Hemoglobin 24.4, Mean Corpuscular Hemoglobin Concent 30.1, Mean Platelet Volume 11.8, Neutrophils (%) (Auto) 70.3, Lymphocytes (%) (Auto) 22.8, Monocytes (%) (Auto) 5.5, Eosinophils (%) (Auto) 1.0, Basophils (%) (Auto) 0.2, Neutrophils # (Auto) 6.29, Lymphocytes # (Auto) 2.04, Monocytes # (Auto) 0.49, Eosinophils # (Auto) 0.09, Basophils # (Auto) 0.02 11/10/16 10:50 Test 11/10/16 10:50 11/10/16 11:25 White Blood Count 8.95 K/uL (4.8-10.8) Red Blood Count 4.79 M/uL (4.2-5.4) Hemoglobin 11.7 g/dL (12.0-16.0) Hematocrit 38.9 % (37-47) Mean Corpuscular Volume 81.2 fL (80-100) Mean Corpuscular Hemoglobin 24.4 pg (25-34) Mean Corpuscular Hemoglobin Concent 30.1 g/dl (32-36) Platelet Count 224 K/uL (130-400) Mean Platelet Volume 11.8 fL (7.4-10.4) Neutrophils (%) (Auto) 70.3 % Lymphocytes (%) (Auto) 22.8 % Monocytes (%) (Auto) 5.5 % Eosinophils (%) (Auto) 1.0 % Basophils (%) (Auto) 0.2 % Neutrophils # (Auto) 6.29 K/uL (1.4-6.5) Lymphocytes # (Auto) 2.04 K/uL (1.2-3.4) Monocytes # (Auto) 0.49 K/uL (0.11-0.59) Eosinophils # (Auto) 0.09 K/uL (0-0.5) Basophils # (Auto) 0.02 K/uL (0-0.2) RDW Standard Deviation 56.2 fL (36.4-46.3) RDW Coefficient of Variation 18.7 % (11.5-14.5) Immature Granulocyte % (Auto) 0.2 % Immature Granulocyte # (Auto) 0.02 K/uL (0.00-0.02) Anion Gap 9.0 mmol/L (3-11) Est Creatinine Clear Calc Drug Dose 130.9 ml/min Estimated GFR () 108.4 Estimated GFR (Non- 93.5 BUN/Creatinine Ratio 14.9 (10-20) Calcium Level 9.1 mg/dl (8.5-10.1) Total Bilirubin 0.5 mg/dl (0.2-1) Direct Bilirubin 0.2 mg/dl (0-0.2) Aspartate Amino Transf (AST/SGOT) 18 U/L (15-37) Alanine Aminotransferase (ALT/SGPT) 45 U/L (12-78) Alkaline Phosphatase 78 U/L (45-117) Total Protein 7.4 gm/dl (6.4-8.2) Albumin 3.7 gm/dl (3.4-5.0) Lipase 102 U/L (73-393) Human Chorionic Gonadotropin, Qual NEG (NEG) Urine Color DK YELLOW Urine Appearance CLOUDY (CLEAR) Urine pH 5.5 (4.5-7.5) Urine Specific [place] 1.029 (1.000-1.030) Urine Protein NEG (NEG) Urine Glucose (UA) NEG (NEG) Urine Ketones TRACE (NEG) Urine Occult Blood NEG (NEG) Urine Nitrite NEG (NEG) Urine Bilirubin NEG (NEG) Urine Urobilinogen NEG (NEG) Urine Leukocyte Esterase TRACE (NEG) Urine WBC (Auto) 5-10 /hpf (0-5) Urine RBC (Auto) 0-4 /hpf (0-4) Urine Hyaline Casts (Auto) 1-5 /lpf (0-5) Urine Epithelial Cells (Auto) >30 /lpf (0-5) Urine Bacteria (Auto) 1+ (NEG) Urine Crystals CALCIUM OXALATE (NONE Urine Pathogenic Casts /lpf (0) Laboratory studies as stated above per my review. Medications Administered Medications (Trade) Dose Ordered Sig/Asim Route Start Time Stop Time Status Last Admin Dose Admin Ketorolac Tromethamine (Toradol Inj) 30 mg NOW STAT IV 11/10/16 10:42 11/10/16 10:44 DC 11/10/16 10:58 30 MG ED Course 1033: Past medical records reviewed. The patient was evaluated in room B02, and a complete history and physical examination were performed. 1042: Toradol Injection 30 mg IV. 1300: I reevaluated the patient and she is resting comfortably. 1430: Upon reevaluation, the patient is resting comfortably. I discussed the results and treatment plan with the patient. She verbalized agreement of the treatment plan. The patient was discharged home. Medical Decision Differentials include, but are not limited to; complication related to surgery, colitis, gynecology problem, UTI, electrolyte or metabolic abnormality. Medication Reconciliation: I attest that I have personally reviewed the patient' s current medication list. Blood pressure Screening: Patient was found to have normal blood pressure on screening and does not require follow-up. This patient comes in as described above. She was placed in room B2. She is here for treatment and evaluation of diffuse abdominal pain she's had this going on for quite some time she's been seen by a brazing furnace operator on Tuesday and had an ultrasound. She's no vaginal bleeding or discharge at present. She has nothing to suggest a hernia. IV access established and blood work was obtained she's no fever or white count to suggest infection. Urinalysis does not suggest UTI. CAT scan of her abdomen is unremarkable and she has no acute findings which would explain her symptoms. She has no findings to suggest any abnormalities related to her surgery. She's not anemic. She has nothing to suggest liver , gallbladder, or pancreas disease. She did receive IV morphine and IV Zofran while she was here is feeling better she is not driving. I encouraged her to rest and drink plenty of fluids. For pain at home, she can use acetaminophen/Tylenol but did not exceed the [id number] recommended dosages for this medication and do not take with any other medications contain acetaminophen. She was happy with the plan and was discharged home. Impression Primary Impression: Epigastric abdominal pain Scribe Attestation The scribe's documentation has been prepared under my direction and personally reviewed by me in its entirety. I confirm that the note above accurately reflects all work, treatment, procedures, and medical decision making performed by me. Departure Information Dispostion Home / Self-Care Referrals Judit Dixon M.D. (PCP) Forms Call Back Authorization, HOME CARE DOCUMENTATION FORM, IMPORTANT VISIT INFORMATION Patient Instructions My [facility] Additional Instructions Rest. Drink plenty of fluids. Return if: Worsening symptoms, fever chills, increasing pain or problems, any new problems concerns Follow-up with your doctor in 1-2 days for recheck.
[2016-11-10 11:02] LABS: BASO % 0.2 %; BASO ABS # 0.02 K/uL (0-0.2); COMPLETE YES; HEMATOCRIT 38.9 % (37-47); IG% 0.2 %; LYMPH % 22.8 %; LYMPH ABS # 2.04 K/uL (1.2-3.4); MEAN CELL VOLUME 81.2 fL (80-100); MEAN CORPUSCULAR HEMOGLOBIN 24.4 pg (25-34); MEAN CORPUSCULAR HGB CONC 30.1 g/dl (32-36); MEAN PLATELET VOLUME 11.8 fL (7.4-10.4); MONO % 5.5 %; NEUT % 70.3 %; PLATELET COUNT 224 K/uL (130-400); RED BLOOD COUNT 4.79 M/uL (4.2-5.4); WHITE BLOOD COUNT 8.95 K/uL (4.8-10.8)
[2016-11-10] MEDS ORDERED: FERRTAB18 PO (11:04)
[2016-11-10] MEDS ORDERED: CIPR1TAB10 PO (11:04)
[2016-11-10 11:21] LABS: BUN/CREATININE RATIO 14.9 (10-20); CALCIUM 9.1 mg/dl (8.5-10.1); CREATININE 0.8 mg/dl (0.60-1.20); POTASSIUM 4.1 mmol/L (3.5-5.1)
[2016-11-10 11:22] LABS: PREG INTERNAL NEGATIVE QC NEG CLEAR BACKGROUND; PREG INTERNAL POSITIVE QC POS CONTROL LINE
[2016-11-10] MEDS ORDERED: OPTIRAY 320 IV PRN (11:45)
--- NOTE | 2016-11-10 12:53 | DIAGNOSTIC IMAGING REPORT ---
ABD/PELVIS IV CONTRAST ONLY HISTORY:36 yearsFemale. Patient presents with diffuse acute abdominal pain. COMPARISON: CT abdomen and pelvis 04/17/2016. TECHNIQUE: Multiple axial CT images of the abdomen were obtained following the intravenous administration of 116 mL Optiray 320. FINDINGS: There is minimal dependent subsegmental bibasilar atelectasis. No pneumoperitoneum. Inferior cardiac chambers are unremarkable. The spleen and liver are again mildly enlarged with the liver measuring up to 16 cm at the midclavicular line and the spleen measuring up to 16 cm. Prior cholecystectomy. The pancreas and adrenal glands appear normal. The kidneys, ureters, urinary bladder, uterus and adnexa are within normal limits. 1.6 x 2.0 cm cyst of the anterior interpolar right kidney is noted. The abdominal aorta is normal in both course and caliber. There is no bulky retroperitoneal adenopathy. There is been prior gastric bypass which appears to be a Ralph-en-Y. No evidence of anastomotic dehiscence. No fluid collections or inflammatory changes are seen within the abdomen. No evidence of bowel obstruction. There is some high attenuating material noted within small bowel of the lower pelvis suggesting ingested material. The colon and appendix appear normal. Patient obesity is noted. Facet arthropathy involves the lower lumbar spine. Degenerative changes are seen within the sacroiliac joints. IMPRESSION: 1. No acute intra-abdominal or intrapelvic abnormality. Normal appendix. 2. Prior Ralph-en-Y gastric bypass without evidence of complication. No bowel obstruction. 3. Mild hepatosplenomegaly. 4. Prior cholecystectomy. The above report was generated using voice recognition software. It may contain grammatical, syntax or spelling errors. Electronically signed by: Jossue Maat M.D. 11/10/2016 12:52 PM Dictated Date/Time: 11/10/2016 12:44 PM
[2016-11-10 13:14] LABS: URINE APPEARANCE CLOUDY (CLEAR); URINE BILIRUBIN NEG (NEG); URINE COLOR DK YELLOW; URINE EPITHELIAL CELL AUTO >30 /lpf (0-5); URINE NITRITE NEG (NEG); URINE PH 5.5 (4.5-7.5); URINE SPECIFIC GRAVITY 1.029 (1.000-1.030); UROBILINOGEN NEG (NEG)
[2016-11-10 13:16] LABS: MANUAL MICROSCOPIC REQUIRED? NO; REVIEW REQ? YES
[2016-11-10 14:43] VITALS: BP 138/74; PULSE 68; O2SAT 96
== END 2016-11-10 14:44 | disposition home or self-care (01) ==
LOC: C.EDB 10:18
DX: R10.13 Epigastric pain (principal); E11.9 Type 2 diabetes mellitus without complications; K76.0 Fatty (change of) liver, not elsewhere classified; Z98.84 Bariatric surgery status; Z90.49 Acquired absence of other specified parts of digestive tract; Z98.890 Other specified postprocedural states; Z98.51 Tubal ligation status; Z80.9 Family history of malignant neoplasm, unspecified; Z83.3 Family history of diabetes mellitus; Z82.0 Family history of epilepsy and other diseases of the nervous system; Z82.49 Family history of ischemic heart disease and other diseases of the circulatory system; Z79.899 Other long term (current) drug therapy; Z79.4 Long term (current) use of insulin

== ENCOUNTER 2017-07-05 20:29 | Emergency (ER) | payer OTHER ==
[~2017-07-05] VITALS: Ht 160 cm; Wt 144.1 kg
[~2017-07-05 20:29] MED LIST changes: -ACET-749 PO; +CYNI1000 IM; -CYNI1000 SQ; +FERRTAB18 PO; -INSDGIPEN SC; +INSDGIPEN SQ; -LORA10TA5 PO; +LORA10TA6 PO; -NORE5TAB5 PO; -ONDA4TAB10 SL; +[UNRECOGNIZED DRUG - OTHER] IM
[2017-07-05 20:45] VITALS: TEMP 37.2; Ht 160 cm; Wt 144.1 kg
[2017-07-05] MEDS ORDERED: SODIUM CHLORIDE 0.9% 1000ML 1,000 ML IV STA (20:56)
--- NOTE | 2017-07-05 21:20 | DIAGNOSTIC IMAGING REPORT ---
CHEST ONE VIEW PORTABLE CLINICAL HISTORY: 37 years-old Female presenting with febrile, aches. TECHNIQUE: Portable upright AP view of the chest was obtained. COMPARISON: 09/29/2016. FINDINGS: Cardiomediastinal silhouette normal. Mildly low lung volumes with hypoventilatory changes. No focal opacity. No large effusion or pneumothorax. Vague right basilar opacity likely represents a vascular shadow and is unchanged from prior. Osseous structures normal. Upper abdomen normal. IMPRESSION: 1. No acute cardiopulmonary disease. Electronically signed by: Rodney Abel M.D. 07/05/2017 9:19 PM Dictated Date/Time: 07/05/2017 9:18 PM
--- NOTE | 2017-07-05 21:24 | EMERGENCY ROOM VISIT NOTE ---
History First contact with patient: 20:48 Chief Complaint: FEVER Stated Complaint: FEVER, ACHE, BODY CHILLS History of Present Illness The patient is a 37 year old female who presents to the Emergency Room via private vehicle accompanied by female with complaints of "fever, aches, body chills". The patient states that for the past week she has been experiencing body aches, chills, and loose stools. She notes that loose stools are not necessarily new as she notes that after her gastric bypass surgery this appears to be normal for her. She notes that her frequency of stools though has increased. She feels as though she may be dehydrated as well. She states that she was on antibiotics 3-4 weeks ago for a sinus infection. She also developed a yeast infection which was treated. She notes that she also titrate his Zoloft from 100 mg down to 50. She denies any chest pain, shortness of breath or abdominal pain. Review of Systems A complete 10-point Review of Systems was discussed with the patient, with pertinent positives and negatives listed in the History of Present Illness. All remaining Review of Systems questions can be considered negative unless otherwise specified. Past Medical/Surgical History Medical Problems: (1) Diab Sury Wo Compl, Type Ii Or Unspec Type, Not Uncntrld (2) Tubal Ligation Status Family History Cancer Diabetes mellitus FHx: seizures Heart disease Hypertension Social History Smoking Status: Never Smoker Alcohol Use: none Drug Use: none Marital Status: single Housing Status: lives with family Occupation Status: employed Current/Historical Medications Scheduled Calcium Citrate (Calcium Citrate), 500 MG PO BID Cholecalciferol (Vitamin D), 5,000 INTER.UNIT PO QPM Colestipol Hcl (Colestid), 1 GM PO DAILY Cyanocobalamin (Cyanocobalamin), 1,000 MCG IM [id number] Insulin Glargine (Lantus Solostar), 30 UNITS SQ QAM Loratadine (Claritin), 10 MG PO QAM Omeprazole (Omeprazole), 20 MG PO DAILY Pediatric Multiple Vitamin W/ (Flintstones Chewable), 1 TAB PO BID Sertraline (Zoloft), 50 MG PO QAM Scheduled PRN Acetaminophen (Tylenol), 500 MG PO UD PRN for Pain Dicyclomine Hcl (Dicyclomine Hcl), 20 MG PO BID PRN for Abdominal Cramping Physical Exam Vital Signs Date Time Temp Pulse Resp B/P (MAP) Pulse Ox O2 Delivery O2 Flow Rate FiO2 07/05/17 22:13 76 18 152/85 96 Room Air 07/05/17 20:45 37.2 95 20 136/82 95 Room Air Physical Exam VITAL SIGNS - Vital signs and nursing notes were reviewed. Stable. GENERAL -37-year-old female appearing her stated age who is in no acute distress. Communicates well with provider and answers questions appropriately. SKIN - Without rashes. HEAD - NC/AT. EYES - PSclera anicteric. EARS - No deformities of external structures noted on gross examination bilaterally. External auditory canals without discharge or otorrhea. Tympanic membranes pearly yung without retraction or bulging. No fluid or purulent material visualized behind the TM. Handle of malleus, umbo, cone of light, pars tensa/flaccid all easily visualized. NOSE - Midline and without cyanosis. No epistaxis or purulent drainage noted. MOUTH/OROPHARYNX - Without perioral cyanosis. Buccal mucosa pink and moist and without leukoplakia. Tongue midline with equal elevation of palate bilaterally. No tonsillar hypertrophy, erythema, or exudates noted. Fair dentition noted. NECK - Neck with FROM. Supple to palpation. No lymphadenopathy noted. No nuchal rigidity. LUNGS - Chest wall symmetric without accessory muscle use, intercostals retractions, or central cyanosis. Normal vesicular breath sounds CTA B/L. No wheezes, rales, or rhonchi appreciated. CARDIAC - RRR with S1/S2. No murmur, rubs, or gallops appreciated. EXTREMITIES - No clubbing or peripheral cyanosis. No pretibial edema present. NEUROLOGIC - Cranial nerves II through XII grossly intact. PSYCH - A&O, and cooperates fully with examiner. Pt is very pleasant and interacts well with examiner. Medical Decision & Procedures ER Provider Diagnostic Interpretation: CHEST ONE VIEW PORTABLE CLINICAL HISTORY: 37 years-old Female presenting with febrile, aches. TECHNIQUE: Portable upright AP view of the chest was obtained. COMPARISON: 09/29/2016. FINDINGS: Cardiomediastinal silhouette normal. Mildly low lung volumes with hypoventilatory changes. No focal opacity. No large effusion or pneumothorax. Vague right basilar opacity likely represents a vascular shadow and is unchanged from prior. Osseous structures normal. Upper abdomen normal. IMPRESSION: 1. No acute cardiopulmonary disease. Electronically signed by: Rodney Abel M.D. 07/05/2017 9:19 PM Dictated Date/Time: 07/05/2017 9:18 PM Laboratory Results 07/05/17 21:10 Red Blood Count 4.28, Mean Corpuscular Volume 82.7, Mean Corpuscular Hemoglobin 28.3, Mean Corpuscular Hemoglobin Concent 34.2, Mean Platelet Volume 11.1, Neutrophils (%) (Auto) 50.4, Lymphocytes (%) (Auto) 39.3, Monocytes (%) (Auto) 7.0, Eosinophils (%) (Auto) 2.1, Basophils (%) (Auto) 1.0, Neutrophils # (Auto) 2.58, Lymphocytes # (Auto) 2.01, Monocytes # (Auto) 0.36, Eosinophils # (Auto) 0.11, Basophils # (Auto) 0.05 07/05/17 21:10 Test 07/05/17 21:10 07/05/17 21:15 White Blood Count 5.12 K/uL (4.8-10.8) Red Blood Count 4.28 M/uL (4.2-5.4) Hemoglobin 12.1 g/dL (12.0-16.0) Hematocrit 35.4 % (37-47) Mean Corpuscular Volume 82.7 fL (80-100) Mean Corpuscular Hemoglobin 28.3 pg (25-34) Mean Corpuscular Hemoglobin Concent 34.2 g/dl (32-36) Platelet Count 100 K/uL (130-400) Mean Platelet Volume 11.1 fL (7.4-10.4) Neutrophils (%) (Auto) 50.4 % Lymphocytes (%) (Auto) 39.3 % Monocytes (%) (Auto) 7.0 % Eosinophils (%) (Auto) 2.1 % Basophils (%) (Auto) 1.0 % Neutrophils # (Auto) 2.58 K/uL (1.4-6.5) Lymphocytes # (Auto) 2.01 K/uL (1.2-3.4) Monocytes # (Auto) 0.36 K/uL (0.11-0.59) Eosinophils # (Auto) 0.11 K/uL (0-0.5) Basophils # (Auto) 0.05 K/uL (0-0.2) RDW Standard Deviation 42.7 fL (36.4-46.3) RDW Coefficient of Variation 14.3 % (11.5-14.5) Immature Granulocyte % (Auto) 0.2 % Immature Granulocyte # (Auto) 0.01 K/uL (0.00-0.02) Anion Gap 6.0 mmol/L (3-11) Est Creatinine Clear Calc Drug Dose 119.3 ml/min Estimated GFR () 94.6 Estimated GFR (Non- 81.6 BUN/Creatinine Ratio 20.2 (10-20) Calcium Level 8.5 mg/dl (8.5-10.1) Magnesium Level 1.9 mg/dl (1.8-2.4) Total Bilirubin 0.5 mg/dl (0.2-1) Aspartate Amino Transf (AST/SGOT) 47 U/L (15-37) Alanine Aminotransferase (ALT/SGPT) 79 U/L (12-78) Alkaline Phosphatase 236 U/L (45-117) Total Protein 7.3 gm/dl (6.4-8.2) Albumin 3.6 gm/dl (3.4-5.0) Globulin 3.7 gm/dl (2.5-4.0) Albumin/Globulin Ratio 1.0 (0.9-2) Lipase 92 U/L (73-393) Beta-Hydroxybutyric Acid 1.15 mg/dL (0.2-2.81) Monoscreen NEG (NEG) Urine Color DK YELLOW Urine Appearance CLEAR (CLEAR) Urine pH 5.5 (4.5-7.5) Urine Specific [place] 1.036 (1.000-1.030) Urine Protein NEG (NEG) Urine Glucose (UA) 3+ (NEG) Urine Ketones TRACE (NEG) Urine Occult Blood NEG (NEG) Urine Nitrite NEG (NEG) Urine Bilirubin NEG (NEG) Urine Urobilinogen NEG (NEG) Urine Leukocyte Esterase NEG (NEG) Urine Test NEG (NEG) Influenza Type A Antigen Neg for Influ A (NEG) Influenza Type B Antigen Neg for Influ B (NEG) Medications Administered Medications (Trade) Dose Ordered Sig/Asim Route Start Time Stop Time Status Last Admin Dose Admin Sodium Chloride 1,000 ml @ 999 mls/hr Q1H1M STAT IV 07/05/17 20:56 07/05/17 21:56 DC 07/05/17 21:10 999 MLS/HR Medical Decision Patient was seen and evaluated as above. She presents to us today with viral- like illness. After obtaining a thorough history and physical examination the above work up was performed. Chest x-ray negative. There is no concern leukocytosis or anemia found upon her blood work. No concerning metabolic process other than she does have hyperglycemia, slightly low potassium as well as increase of her liver enzymes. I discussed these findings with the patient and it was noted that she has stage II fatty liver. She states that she has had high values before. I did review the system and it appears that she has. She is to follow with her family doctor. I informed her upon the elevated glucose, and this certainly could be secondary to the underlying illness creating this however she is to certainly follow closely to manage and titrate her insulin appropriately. She notes that there is an individual of which she contacts to help manage this. I do believe she is stable for outpatient management, and while here was hydrated with fluids. She is nontoxic on exam. Again, I suspect a viral-like illness like the flu. The patient was educated upon management, had questions answered prior to discharge, and was discharged home in good condition. It is important to note that I did ask the patient to provide a stool sample while here to test for potential C. difficile, and unfortunately she was not able to do so. I informed her that if the diarrhea persists the testing for such would be warranted. She is to follow with the family doctor. In addition , I discussed Tylenol use. Although she is using Tylenol, I do not believe that is more than the recommendation therefore do not favor that the liver functions are from such, I believe that the liver elevation is likely from her underlying liver condition that she is already aware of. Case was discussed with the attending physician In the evaluation and treatment of this patient the following differential diagnoses were entertained: Influenza, pneumonia, [place], PE, C. difficile, among others. Impression Primary Impression: Influenza-like symptoms Departure Information Dispostion Home / Self-Care Condition GOOD Referrals Judit Dixon M.D. (PCP) Patient Instructions My [facility] Additional Instructions You have been treated in the Emergency Department for a flu like illness. For pain control, you can use the following [id number] medicines: - Regular strength (325mg/tab) Tylenol (acetaminophen) 2 tabs every 4-6 hours as needed. Do not exceed 12 tablets in a 24 hour period. Avoid taking more than 3 grams (3000 mg) of Tylenol per day. This includes any other sources of acetaminophen you may take on a regular basis. You should schedule a follow-up appointment in 2-3 days with your Primary Care Provider for further evaluation and treatment of your symptoms. [place] diet over next few days, rest and stay well hydrated. Please follow up with family doctor for your elevated liver tests. Return to the Emergency Department if your current symptoms worsen despite treatment course outlined above, or if you develop any of the following symptoms : intractable pain despite aforementioned treatment course, loss of control of your bowel or bladder, numbness or tingling in your groin, or development of a fever.
[2017-07-05 21:25] LABS: BASO ABS # 0.05 K/uL (0-0.2); EOS % 2.1 %; EOS ABS # 0.11 K/uL (0-0.5); HEMATOCRIT 35.4 % (37-47); HEMOGLOBIN 12.1 g/dL (12.0-16.0); IG# 0.01 K/uL (0.00-0.02); LYMPH % 39.3 %; LYMPH ABS # 2.01 K/uL (1.2-3.4); MEAN CELL VOLUME 82.7 fL (80-100); MEAN CORPUSCULAR HEMOGLOBIN 28.3 pg (25-34); MEAN CORPUSCULAR HGB CONC 34.2 g/dl (32-36); MEAN PLATELET VOLUME 11.1 fL (7.4-10.4); MONO ABS # 0.36 K/uL (0.11-0.59); NEUT % 50.4 %; NEUT ABS # 2.58 K/uL (1.4-6.5); PLATELET COUNT 100 K/uL (130-400); RED CELL DISTRIBUTION WIDTH CV 14.3 % (11.5-14.5); RED CELL DISTRIBUTION WIDTH SD 42.7 fL (36.4-46.3); WHITE BLOOD COUNT 5.12 K/uL (4.8-10.8)
[2017-07-05] MEDS ORDERED: COLE1TAB PO (21:43)
[2017-07-05] MEDS ORDERED: DICY20TA10 PO (21:43)
[2017-07-05 21:46] LABS: ALBUMIN 3.6 gm/dl (3.4-5.0); CALCIUM 8.5 mg/dl (8.5-10.1); CREATININE 0.89 mg/dl (0.60-1.20)
[2017-07-05 21:48] LABS: TOTAL PROTEIN 7.3 gm/dl (6.4-8.2)
[2017-07-05 21:55] LABS: INFLUENZA B ANTIGEN Neg for Influ B (NEG)
[2017-07-05 22:13] VITALS: BP 152/85; PULSE 76; O2SAT 96
== END 2017-07-05 22:20 | disposition home or self-care (01) ==
LOC: C.EDB 20:29 → C.EDC 22:20
DX: R50.9 Fever, unspecified (principal); R52 Pain, unspecified; R19.4 Change in bowel habit; E87.6 Hypokalemia; R94.5 Abnormal results of liver function studies; E11.65 Type 2 diabetes mellitus with hyperglycemia; Z79.4 Long term (current) use of insulin; Z83.3 Family history of diabetes mellitus; Z82.0 Family history of epilepsy and other diseases of the nervous system; Z82.49 Family history of ischemic heart disease and other diseases of the circulatory system

== ENCOUNTER 2017-12-20 11:34 | Emergency (ER) | payer OTHER ==
[~2017-12-20] VITALS: Ht 160 cm; Wt 135.4 kg
[~2017-12-20 11:34] MED LIST changes: +COLE1TAB PO; +EMPA1TAB PO; -FERRTAB18 PO; +LEVO5TAB7 PO; -LORA10TA6 PO; -[UNRECOGNIZED DRUG - OTHER] IM
[2017-12-20 11:44] VITALS: TEMP 36.8; Ht 160 cm; Wt 135.4 kg
[2017-12-20] MEDS ORDERED: OPTIRAY 320 IV PRN (12:15)
[2017-12-20 12:32] LABS: BASO % 0.3 %; BASO ABS # 0.02 K/uL (0-0.2); EOS % 1.4 %; EOS ABS # 0.09 K/uL (0-0.5); HEMATOCRIT 36.3 % (37-47); HEMOGLOBIN 11.5 g/dL (12.0-16.0); LYMPH % 34.4 %; LYMPH ABS # 2.18 K/uL (1.2-3.4); MEAN CELL VOLUME 77.9 fL (80-100); MEAN CORPUSCULAR HEMOGLOBIN 24.7 pg (25-34); MEAN CORPUSCULAR HGB CONC 31.7 g/dl (32-36); MEAN PLATELET VOLUME 10.7 fL (7.4-10.4); MONO % 6.8 %; MONO ABS # 0.43 K/uL (0.11-0.59); NEUT % 57.1 %; NEUT ABS # 3.61 K/uL (1.4-6.5); PLATELET COUNT 174 K/uL (130-400); RED CELL DISTRIBUTION WIDTH CV 15.4 % (11.5-14.5); RED CELL DISTRIBUTION WIDTH SD 43.5 fL (36.4-46.3); WHITE BLOOD COUNT 6.33 K/uL (4.8-10.8)
--- NOTE | 2017-12-20 12:39 | EMERGENCY ROOM VISIT NOTE ---
History First contact with patient: 11:51 Chief Complaint: OTHER COMPLAINT Stated Complaint: LUMP ON TAILBONE History of Present Illness The patient is a 37 year old female who presents to the Emergency Room with complaints of an area of swelling on her tailbone. The patient states that she has had some pain and spasms in her low back for the past few weeks. She states that over the past 4 days, she has had difficulty sitting and has noticed swelling at the area of her tailbone. She was seen by her primary care provider yesterday and had x-rays done and she states these showed an area of swelling. They were unsure if this was a cyst or abscess and are trying to order a CT scan. The patient states she has had insurance issues and so decided to just come here. She reports pain rated a 5/10 which is worse when sitting on the area or when the area. She denies any redness, drainage or fevers. She denies abdominal pain, nausea or vomiting. She does report a history of a pilonidal abscess many years ago. Patient is a diabetic with moderate control of blood sugars. Review of Systems A complete 10 point review of systems was reviewed with the patient with pertinent positives and negatives as per history of present illness. All else were negative. Past Medical/Surgical History Medical Problems: (1) Diab Sury Wo Compl, Type Ii Or Unspec Type, Not Uncntrld (2) Tubal Ligation Status Family History Cancer Diabetes mellitus FHx: seizures Heart disease Hypertension Social History Smoking Status: Never Smoker Alcohol Use: none Drug Use: none Marital Status: single Housing Status: lives with family Occupation Status: employed Current/Historical Medications Scheduled Ertugliflozin l-Pyroglutamic A (Steglatro), 5 MG PO DAILY Insulin Glargine (Basaglar Kwikpen), 50 UNITS SC BID Omeprazole (Prilosec), 20 MG PO DAILY Sertraline HCl (Sertraline HCl), 100 MG PO DAILY Scheduled PRN Baclofen (Baclofen), 20 MG PO BID PRN for Muscle Spasms Physical Exam Vital Signs Date Time Temp Pulse Resp B/P (MAP) Pulse Ox O2 Delivery O2 Flow Rate FiO2 12/20/17 14:40 68 20 166/95 98 12/20/17 13:52 66 18 141/77 98 Room Air 12/20/17 11:44 36.8 85 18 135/83 97 Room Air Physical Exam VITALS: Vitals are noted on the nurse's note and reviewed by myself. Vital signs stable. GENERAL: This is a 37-year-old female, in no acute distress, nondiaphoretic, well-developed well-nourished. SKIN: The skin was without erythema. There is an area of apparent edema over the low back, just proximal to the gluteal cleft. There is no palpable fluctuance or induration. There is no drainage or wound. HEART: Regular rate and rhythm without murmurs gallops or rubs. LUNGS: Clear to auscultation bilaterally without wheezes, rales or rhonchi. ABDOMEN: Soft, nontender without masses or organomegaly. NEURO: Patient was alert and oriented to person place and time. Medical Decision & Procedures ER Provider Diagnostic Interpretation: ABDOMEN AND PELVIS CT WITH IV CONTRAST CT DOSE: 1336.34 mGycm HISTORY: Patient presents with palpable abnormality of the mid lower back ?large fluid collection/pilonidal cyst TECHNIQUE: Multiaxial CT images of the abdomen and pelvis were performed following the use of intravenous contrast. A dose lowering technique was utilized adhering to the principles of ALARA. COMPARISON STUDY: CT abdomen and pelvis 11/10/2016. FINDINGS: The imaged lung bases are generally clear. No pneumatosis or pneumoperitoneum identified. Imaged inferior cardiac chambers are unremarkable. Hepatosplenomegaly with spleen measuring 16.9 cm. Liver measures 17.8 cm at the mid clavicular line. Prior cholecystectomy. No intrahepatic biliary ductal dilation or focal hepatic mass lesion. Pancreas and adrenal glands appear unremarkable. Kidneys are unremarkable. 7 mm hypodense lesion about the superior pole left kidney suggests renal cyst, however too small to characterize. The ureters and bladder appear unremarkable. Uterus and adnexa are within normal limits. Beam hardening artifact from patient body habitus limits the study. Aorta and IVC are unremarkable. No pathologically enlarged lymph nodes identified. Postoperative changes from prior gastric bypass. No bowel obstruction or focal bowel wall thickening. Appendix and terminal ileum appear unremarkable. No ascites or mesenteric inflammatory changes. A few scattered air-fluid levels involving loops of ileum within the lower abdomen and pelvis are likely physiologic. No focal fluid collection or soft tissue mass identified within the soft tissues of the lower back to correlate with patient's reported symptomatology. Possible lipoma or subcutaneous fat of the midline subcutaneous tissues of the lower lumbar spine on image 50 series 2 measuring up to approximately 10.5 cm. No perirectal fluid collection. IMPRESSION: 1. No acute intra-abdominal or intrapelvic abnormality identified. Normal appendix. 2. Prior Ralph-en-Y gastric bypass. 3. Hepatosplenomegaly. 4. No fluid collection or soft tissue mass identified within the perirectal or lower back distribution to correlate with the reported symptomatology. Laboratory Results 12/20/17 12:20 Red Blood Count 4.66, Mean Corpuscular Volume 77.9, Mean Corpuscular Hemoglobin 24.7, Mean Corpuscular Hemoglobin Concent 31.7, Mean Platelet Volume 10.7, Neutrophils (%) (Auto) 57.1, Lymphocytes (%) (Auto) 34.4, Monocytes (%) (Auto) 6.8, Eosinophils (%) (Auto) 1.4, Basophils (%) (Auto) 0.3, Neutrophils # (Auto) 3.61, Lymphocytes # (Auto) 2.18, Monocytes # (Auto) 0.43, Eosinophils # (Auto) 0.09, Basophils # (Auto) 0.02 12/20/17 12:20 Test 12/20/17 12:20 White Blood Count 6.33 K/uL (4.8-10.8) Red Blood Count 4.66 M/uL (4.2-5.4) Hemoglobin 11.5 g/dL (12.0-16.0) Hematocrit 36.3 % (37-47) Mean Corpuscular Volume 77.9 fL (80-100) Mean Corpuscular Hemoglobin 24.7 pg (25-34) Mean Corpuscular Hemoglobin Concent 31.7 g/dl (32-36) Platelet Count 174 K/uL (130-400) Mean Platelet Volume 10.7 fL (7.4-10.4) Neutrophils (%) (Auto) 57.1 % Lymphocytes (%) (Auto) 34.4 % Monocytes (%) (Auto) 6.8 % Eosinophils (%) (Auto) 1.4 % Basophils (%) (Auto) 0.3 % Neutrophils # (Auto) 3.61 K/uL (1.4-6.5) Lymphocytes # (Auto) 2.18 K/uL (1.2-3.4) Monocytes # (Auto) 0.43 K/uL (0.11-0.59) Eosinophils # (Auto) 0.09 K/uL (0-0.5) Basophils # (Auto) 0.02 K/uL (0-0.2) RDW Standard Deviation 43.5 fL (36.4-46.3) RDW Coefficient of Variation 15.4 % (11.5-14.5) Immature Granulocyte % (Auto) 0.0 % Immature Granulocyte # (Auto) 0.00 K/uL (0.00-0.02) Anion Gap 7.0 mmol/L (3-11) Est Creatinine Clear Calc Drug Dose 150.1 ml/min Estimated GFR () 127.7 Estimated GFR (Non- 110.2 BUN/Creatinine Ratio 18.0 (10-20) Calcium Level 8.4 mg/dl (8.5-10.1) Total Bilirubin 0.4 mg/dl (0.2-1) Aspartate Amino Transf (AST/SGOT) 15 U/L (15-37) Alanine Aminotransferase (ALT/SGPT) 30 U/L (12-78) Alkaline Phosphatase 121 U/L (45-117) Total Protein 7.3 gm/dl (6.4-8.2) Albumin 3.6 gm/dl (3.4-5.0) Globulin 3.7 gm/dl (2.5-4.0) Albumin/Globulin Ratio 1.0 (0.9-2) Medical Decision Differential diagnosis includes musculoskeletal source, pilonidal cyst, bilateral abscess, fistula, among others. The patient was evaluated as above. She presents complaining of swelling above the tailbone area. Ultrasound was performed in the room and appears to show a fluid collection versus adipose tissue in the area of concern. CT was then performed and read by radiology and does not show an abscess or fluid collection in that area. Surgery was consulted and believe this is likely a lipoma. They recommended that the patient follow-up at a tertiary care facility for definitive care of this. The patient was advised of this. She will follow-up with her primary care provider. She verbalized understanding of my assessment and treatment plan and was discharged home in good condition. The patient's case was reviewed with Dr. Chou, ED attending physician, who agreed with my assessment and treatment plan. Blood Pressure Screening Patient's blood pressure: Elevated blood pressure Blood pressure disposition: Elevated BP felt to be situational Impression Primary Impression: Lipoma of lower back Departure Information Dispostion Home / Self-Care Condition GOOD Referrals Judit Dixon M.D. (PCP) Patient Instructions My [facility] Additional Instructions You most likely have a lipoma in the area of the tailbone. This is a benign fatty tumor which can be removed by a general surgeon. As discussed, you should be referred to a center such as [facility] to see their general surgeon for removal of this. Return to the emergency department with any redness, warmth, fevers or other new /concerning symptoms.
[2017-12-20 12:52] LABS: ALBUMIN 3.6 gm/dl (3.4-5.0); CALCIUM 8.4 mg/dl (8.5-10.1); CREATININE 0.68 mg/dl (0.60-1.20); TOTAL PROTEIN 7.3 gm/dl (6.4-8.2)
[2017-12-20] MEDS ORDERED: OMEP20CA9 PO (13:18)
[2017-12-20] MEDS ORDERED: ERTU5TAB PO (13:18)
[2017-12-20] MEDS ORDERED: LRS20 PO (13:18)
[2017-12-20] MEDS ORDERED: INSU100I23 SC (13:18)
[2017-12-20] MEDS ORDERED: ZLF/100 PO (13:18)
--- NOTE | 2017-12-20 14:00 | DIAGNOSTIC IMAGING REPORT ---
ABDOMEN AND PELVIS CT WITH IV CONTRAST CT DOSE: 1336.34 mGycm HISTORY: Patient presents with palpable abnormality of the mid lower back ?large fluid collection/pilonidal cyst TECHNIQUE: Multiaxial CT images of the abdomen and pelvis were performed following the use of intravenous contrast. A dose lowering technique was utilized adhering to the principles of ALARA. COMPARISON STUDY: CT abdomen and pelvis 11/10/2016. FINDINGS: The imaged lung bases are generally clear. No pneumatosis or pneumoperitoneum identified. Imaged inferior cardiac chambers are unremarkable. Hepatosplenomegaly with spleen measuring 16.9 cm. Liver measures 17.8 cm at the mid clavicular line. Prior cholecystectomy. No intrahepatic biliary ductal dilation or focal hepatic mass lesion. Pancreas and adrenal glands appear unremarkable. Kidneys are unremarkable. 7 mm hypodense lesion about the superior pole left kidney suggests renal cyst, however too small to characterize. The ureters and bladder appear unremarkable. Uterus and adnexa are within normal limits. Beam hardening artifact from patient body habitus limits the study. Aorta and IVC are unremarkable. No pathologically enlarged lymph nodes identified. Postoperative changes from prior gastric bypass. No bowel obstruction or focal bowel wall thickening. Appendix and terminal ileum appear unremarkable. No ascites or mesenteric inflammatory changes. A few scattered air-fluid levels involving loops of ileum within the lower abdomen and pelvis are likely physiologic. No focal fluid collection or soft tissue mass identified within the soft tissues of the lower back to correlate with patient's reported symptomatology. Possible lipoma or subcutaneous fat of the midline subcutaneous tissues of the lower lumbar spine on image 50 series 2 measuring up to approximately 10.5 cm. No perirectal fluid collection. IMPRESSION: 1. No acute intra-abdominal or intrapelvic abnormality identified. Normal appendix. 2. Prior Ralph-en-Y gastric bypass. 3. Hepatosplenomegaly. 4. No fluid collection or soft tissue mass identified within the perirectal or lower back distribution to correlate with the reported symptomatology. Electronically signed by: Jossue Mata M.D. 12/20/2017 1:59 PM Dictated Date/Time: 12/20/2017 1:51 PM
[2017-12-20 14:40] VITALS: BP 166/95; PULSE 68; O2SAT 98
== END 2017-12-20 14:40 | disposition home or self-care (01) ==
LOC: C.EDB 11:36 → C.EDC 14:40
DX: D17.1 Benign lipomatous neoplasm of skin and subcutaneous tissue of trunk (principal); E11.9 Type 2 diabetes mellitus without complications; Z79.899 Other long term (current) drug therapy; Z79.4 Long term (current) use of insulin; Z83.3 Family history of diabetes mellitus; Z82.49 Family history of ischemic heart disease and other diseases of the circulatory system; Z82.0 Family history of epilepsy and other diseases of the nervous system; M54.5 Low back pain